=== PATIENT | female | born 1945 | race Caucasian/White ===

== ENCOUNTER 2016-08-18 10:31 | Inpatient (IN) | payer MEDICARE, OTHER ==
[2016-08-18] MEDS ORDERED: SODIUM CHLORIDE 0.9% 1,000 ML IV STA (10:57)
[2016-08-18] MEDS ORDERED: HYDROmorphone 1 MG/ML 1 ML SYRINGE IVP STA ×2 (10:57→13:19)
[2016-08-18 11:27] LABS: Basophils % (A) 0 %; CHCM 34.7; Eosinophils # (A) 0.1 k/uL (0-0.7); Eosinophils % (A) 1 %; HCT 36.2 % (34.0-46.0); HDW 3.07; HGB 12.4 gm/dL (11.4-16.0); Luc # (Auto) 0.08; Luc % (Auto) 2; Lymphocytes # (A) 0.6 k/uL (1.0-4.8); Lymphocytes % (A) 12 %; MCH 31.8 pg (25.0-35.0); MCHC 34.2 g/dL (31.0-37.0); MCV 92.9 fL (80.0-100.0); Mean Platelet Volume 7.4; Monocytes # (A) 0.2 k/uL (0-1.0); Monocytes % (A) 5 %; Neutrophils # (A) 4.2 k/uL (1.3-7.7); Neutrophils % (A) 81 %; RBC 3.89 m/uL (3.80-5.40); RDW 14.9 % (11.5-15.5); WBC 5.2 k/uL (3.8-10.6)
[2016-08-18 11:33] LABS: Partial Thromboplastin Time 26.1 sec (22.0-30.0)
[2016-08-18 11:42] LABS: ALT 22 U/L (9-52); AST 15 U/L (14-36); Alkaline Phosphatase 147 U/L (38-126); Anion Gap 10 mmol/L; Blood Urea Nitrogen 26 mg/dL (7-17); Calcium 9.1 mg/dL (8.4-10.2); Carbon Dioxide 19 mmol/L (22-30); Chloride 116 mmol/L (98-107); Glucose 89 mg/dL (74-99); Magnesium 1.9 mg/dL (1.6-2.3); Non-African American GFR(MDRD) 59 (>60 ml/min/1.73 sqM); Phosphorous 3.7 mg/dL (2.5-4.5); Potassium 4.6 mmol/L (3.5-5.1); Sodium 145 mmol/L (137-145); Total Bilirubin 0.5 mg/dL (0.2-1.3); Total Protein 6.2 g/dL (6.3-8.2)
[2016-08-18 11:47] LABS: Creatine Kinase 71 U/L (30-135)
--- NOTE | 2016-08-18 11:52 | ED ---
General Adult HPI - General Chief complaint: Fall Stated complaint: Fall - RT Hip Pain Time Seen by Provider: 08/18/16 10:32 Source: patient, RN notes reviewed, old records reviewed Mode of arrival: EMS Limitations: physical limitation - History of Present Illness Initial comments: This is a 62-year-old female here status post fall. Patient had a fall all transitioning from inside out side today. And right hip complaining of right hip pain was unable to ambulate after fall. Patient is unsure if she has syncope, unsure if she her head. No nausea vomiting. Manikin putting of right leg pain. Patient's brought in by EMS, no blood thinners - Related Data Home Medications Medication Instructions Recorded Confirmed Furosemide [Lasix] 20 mg PO DAILY 04/11/14 08/18/16 Gemfibrozil [Lopid] 600 mg PO AC-BID 04/11/14 08/18/16 Montelukast [Singulair] 10 mg PO HS 04/11/14 08/18/16 Omeprazole [PriLOSEC] 20 mg PO AC-BID 04/11/14 08/18/16 azaTHIOprine [Imuran] 50 mg PO DAILY 04/11/14 08/18/16 buPROPion HCL [Wellbutrin XL] 150 mg PO DAILY 04/11/14 08/18/16 Potassium Chloride [K-Tab ER] 10 meq PO BID 06/01/14 08/18/16 azaTHIOprine [Imuran] 100 mg PO HS 06/01/14 08/18/16 Calcitriol [Rocaltrol] 0.25 mcg PO MOTH 03/18/15 08/18/16 Ergocalciferol [Vitamin D2 50,000 unit PO SUWE 03/18/15 08/18/16 (DRISDOL)] Folic Acid 1 mg PO DAILY 03/18/15 08/18/16 Diphenox-Atrop 2.5-0.025 mg 1 tab PO QID PRN 01/24/16 08/18/16 [Lomotil] Enalapril [Vasotec] 1.25 mg PO DAILY 01/24/16 08/18/16 Aspirin [Adult Low Dose Aspirin EC] 81 mg PO DAILY 04/03/16 08/18/16 Gabapentin [Neurontin] 300 mg PO QAM 04/03/16 08/18/16 HYDROcodone/APAP 10-325MG [[place] 1 tab PO Q6H PRN 04/27/16 08/18/16 10-325] Cyclobenzaprine [Flexeril] 10 mg PO HS 08/18/16 08/18/16 Gabapentin [Neurontin] 600 mg PO HS 08/18/16 08/18/16 Psyllium Husk (with Sugar) 15 ml PO BID 08/18/16 08/18/16 [Metamucil Powder] Previous Rx's Medication Instructions Recorded Metoprolol Tartrate 25 mg PO BID #60 tablet 04/13/14 Nitroglycerin Sl Tabs [Nitrostat] 0.4 mg SUBLINGUAL Q5M PRN #1 bottle 04/13/14 ALPRAZolam [Xanax] 0.25 mg PO BID #20 tab 04/01/15 Colesevelam [Welchol] 1,250 mg PO BID tab 04/01/15 Allergies Allergy/AdvReac Type Severity Reaction Status Date / Time diazepam [From Valium] Allergy Severe cardiac Verified 08/18/16 12:01 arrest meperidine HCl [From Demerol] Allergy Severe cardiac Verified 08/18/16 12:01 arrest morphine Allergy Severe cardiac Verified 08/18/16 12:01 arrest Sulfa (Sulfonamide Allergy Severe LOW Verified 08/18/16 12:01 Antibiotics) PLATELETS AND VOMITING,HIVES dipyridamole Allergy Rash/Hives Verified 08/18/16 12:01 [From Persantine] Latex, Natural Rubber Allergy Swelling Verified 08/18/16 12:01 NSAIDS (Non-Steroidal AdvReac Severe LOW Verified 08/18/16 12:01 Anti-Inflamma PLATELETS buprenorphine HCl AdvReac Nausea & Verified 08/18/16 12:01 [From Buprenex] Vomiting Review of Systems ROS Statement: Those systems with pertinent positive or pertinent negative responses have been documented in the HPI. ROS Other: All systems not noted in ROS Statement are negative. Past Medical History Past Medical History: Asthma, Chest Pain / Angina, Eye Disorder, GERD/Reflux, Hyperlipidemia, Hypertension, Osteoarthritis (OA), Renal Disease Additional Past Medical History / Comment(s): CROHN'S DISEASE. RENAL INSUFFIENCY, VARICOSE VEINS History of Any Multi-Drug Resistant Organisms: None Reported Past Surgical History: Back Surgery, Bladder Surgery, Cardiac Ablation, Cholecystectomy, Heart Catheterization, Hernia Repair, Hysterectomy, Joint Replacement, Orthopedic Surgery, Tonsillectomy Additional Past Surgical History / Comment(s): LIPOMA REMOVED RT HIP AND BUTTOCK , CATARACTS- LENS IMPLANTS; BILATERAL TOTAL KNEE REPLACEMENT, UMBILICAL HERNIA REPAIR. CYSTOCELE/RECTOCELE REPAIR. RT FOOT, BANDING OF HEMORROIDS, recent colonoscopy, hemmroid removal 04/24/16 Past Anesthesia/Blood Transfusion Reactions: No Reported Reaction Past Psychological History: Anxiety Additional Psychological History / Comment(s): XANAX Smoking Status: Never smoker Past Alcohol Use History: None Reported Past Drug Use History: None Reported - Past Family History Father Family Medical History: Congestive Heart Failure (CHF), Myocardial Infarction ( [place]) Additional Family Medical History / Comment(s): AT AGE 61 [place] Mother Family Medical History: Cancer, Congestive Heart Failure (CHF) Additional Family Medical History / Comment(s): LYMPHOMA AT AGE 91 Brother(s) Family Medical History: Diabetes Mellitus Additional Family Medical History / Comment(s): HEART PROBLEMS Sister(s) Additional Family Medical History / Comment(s): AORTIC ANEURYSM General Exam Limitations: physical limitation General appearance: alert, in no apparent distress Head exam: Present: atraumatic, normocephalic, normal inspection Eye exam: Present: normal appearance, PERRL, EOMI. Absent: scleral icterus, conjunctival injection, periorbital swelling ENT exam: Present: normal exam, mucous membranes moist Neck exam: Present: normal inspection. Absent: tenderness, meningismus, lymphadenopathy Respiratory exam: Present: normal lung sounds bilaterally. Absent: respiratory distress, wheezes, rales, rhonchi, stridor Cardiovascular Exam: Present: regular rate, normal rhythm, normal heart sounds. Absent: systolic murmur, diastolic murmur, rubs, gallop, clicks GI/Abdominal exam: Present: soft, normal bowel sounds. Absent: distended, tenderness, guarding, rebound, rigid Extremities exam: Present: normal inspection, full ROM, normal capillary refill. Absent: tenderness, pedal edema, joint swelling, calf tenderness Back exam: Present: normal inspection Neurological exam: Present: alert, oriented X3, CN II-XII intact Psychiatric exam: Present: normal affect, normal mood Skin exam: Present: warm, dry, intact, normal color. Absent: rash Course Vital Signs 08/18/16 08/18/16 10:32 11:57 Temperature 97 F L Pulse Rate 63 63 Respiratory 18 18 Rate Blood Pressure 151/89 141/78 O2 Sat by Pulse 97 98 Oximetry - Reevaluation(s) Reevaluation #1: 08/18/16 13:32 The patient's pain is currently well controlled EKG Findings - EKG Comments: EKG Findings:: EKG shows normal sinus a rate of 61, [place] 170, QRS 108, QTC 428 Medical Decision Making - Medical Decision Making 18 female the ER for evaluation. Patient presents here for evaluation status post fall. Patient has no other traumatic injury as a from fall except for right hip fracture. Will be admitted for fracture treatment and care - Lab Data Result diagrams: 08/18/16 11:10 08/18/16 11:10 Lab Results 08/18/16 08/18/16 08/18/16 Range/Units 11:10 11:10 11:10 WBC 5.2 (3.8-10.6) k/uL RBC 3.89 (3.80-5.40) m/uL Hgb 12.4 (11.4-16.0) gm/dL Hct 36.2 (34.0-46.0) % MCV 92.9 (80.0-100.0) fL MCH 31.8 (25.0-35.0) pg MCHC 34.2 (31.0-37.0) g/dL RDW 14.9 (11.5-15.5) % Plt Count 226 (150-450) k/uL Neutrophils % 81 % Lymphocytes % 12 % Monocytes % 5 % Eosinophils % 1 % Basophils % 0 % Neutrophils # 4.2 (1.3-7.7) k/uL Lymphocytes # 0.6 L (1.0-4.8) k/uL Monocytes # 0.2 (0-1.0) k/uL Eosinophils # 0.1 (0-0.7) k/uL Basophils # 0.0 (0-0.2) k/uL PT (9.0-12.0) sec INR (<1.1) APTT (22.0-30.0) sec Sodium 145 (137-145) mmol/L Potassium 4.6 (3.5-5.1) mmol/L Chloride 116 H (98-107) mmol/L Carbon Dioxide 19 L (22-30) mmol/L Anion Gap 10 mmol/L BUN 26 H (7-17) mg/dL Creatinine 0.94 (0.52-1.04) mg/dL Est GFR (MDRD) Af Amer >60 (>60 ml/min/1.73 sqM) Est GFR (MDRD) Non-Af 59 (>60 ml/min/1.73 sqM) Glucose 89 (74-99) mg/dL Calcium 9.1 (8.4-10.2) mg/dL Phosphorus 3.7 (2.5-4.5) mg/dL Magnesium 1.9 (1.6-2.3) mg/dL Total Bilirubin 0.5 (0.2-1.3) mg/dL AST 15 (14-36) U/L ALT 22 (9-52) U/L Alkaline Phosphatase 147 H (38-126) U/L Total Creatine Kinase 71 (30-135) U/L CK-MB (CK-2) 1.2 (0.0-2.4) ng/mL CK-MB (CK-2) Rel Index 1.7 Troponin I <0.012 (0.000-0.034) ng/mL Total Protein 6.2 L (6.3-8.2) g/dL Albumin 3.8 (3.5-5.0) g/dL 08/18/ Range/Units 11:10 WBC (3.8-10.6) k/uL RBC (3.80-5.40) m/uL Hgb (11.4-16.0) gm/dL Hct (34.0-46.0) % MCV (80.0-100.0) fL MCH (25.0-35.0) pg MCHC (31.0-37.0) g/dL RDW (11.5-15.5) % Plt Count (150-450) k/uL Neutrophils % % Lymphocytes % % Monocytes % % Eosinophils % % Basophils % % Neutrophils # (1.3-7.7) k/uL Lymphocytes # (1.0-4.8) k/uL Monocytes # (0-1.0) k/uL Eosinophils # (0-0.7) k/uL Basophils # (0-0.2) k/uL PT 10.0 (9.0-12.0) sec INR 1.0 (<1.1) APTT 26.1 (22.0-30.0) sec Sodium (137-145) mmol/L Potassium (3.5-5.1) mmol/L Chloride (98-107) mmol/L Carbon Dioxide (22-30) mmol/L Anion Gap mmol/L BUN (7-17) mg/dL Creatinine (0.52-1.04) mg/dL Est GFR (MDRD) Af Amer (>60 ml/min/1.73 sqM) Est GFR (MDRD) Non-Af (>60 ml/min/1.73 sqM) Glucose (74-99) mg/dL Calcium (8.4-10.2) mg/dL Phosphorus (2.5-4.5) mg/dL Magnesium (1.6-2.3) mg/dL Total Bilirubin (0.2-1.3) mg/dL AST (14-36) U/L ALT (9-52) U/L Alkaline Phosphatase (38-126) U/L Total Creatine Kinase (30-135) U/L CK-MB (CK-2) (0.0-2.4) ng/mL CK-MB (CK-2) Rel Index Troponin I (0.000-0.034) ng/mL Total Protein (6.3-8.2) g/dL Albumin (3.5-5.0) g/dL - Radiology Data Radiology results: report reviewed (CT bases by negative for acute disease, chest x-ray negative x-ray right hip CT right hip shows positive hip fracture), image reviewed Disposition Clinical Impression: Fall, Fracture of right hip Disposition: ADMITTED IP TO THIS [facility] Condition: Good Referrals: Venu Lawton DO [Primary Care Provider] - 1-2 days
[2016-08-18 12:00] LABS: Creatine Kinase MB 1.2 ng/mL (0.0-2.4); Troponin I <0.012 ng/mL (0.000-0.034)
--- NOTE | 2016-08-18 12:13 | CT ---
EXAMINATION TYPE: CT brain bhavin wo con DATE OF EXAM: 08/18/2016 12:03 PM COMPARISON: 07/28/2013 HISTORY: fall CT DLP: [address] of the brain was performed. The ventricles, basal cisterns and sulci overlying the cerebral convexities demonstrate mild enlargem ent. There is no evidence for intracranial hemorrhage or sulcal effacement. There is decreased attenuatio n about the periventricular white matter and deep white matter of both cerebral hemispheres, compatib le with chronic small vessel ischemia. No mass effects are seen. If symptoms persist consider MRI. Osseous calvarium is intact. IMPRESSION: 1. Age related atrophic and chronic small vessel ischemic change without acute intracranial process seen at this time. CT Cervical Spine: Unenhanced CT of the cervical spine was performed with bone and soft tissue window settings submitted . Coronal and sagittal reconstruction is obtained. There is normal alignment and prevertebral soft tissues. No evidence for acute cervical fracture . Scattered degenerative disc disease and spondylosis. Biapical scarring. IMPRESSION: 1. No evidence for acute fracture or subluxation of the cervical spine.
--- NOTE | 2016-08-18 13:08 | XR ---
Right hip HISTORY: Right hip pain Comparison to CT scan abdomen and pelvis 27 April 2016, plain film third of April 2016 2 views of the right hip Questionable lucency present along the femoral neck. No dislocation. Bone mineralization is reduced. Postop changes noted. IMPRESSION: Findings suspicious for fracture, consider CT or MRI for better evaluation.
--- NOTE | 2016-08-18 13:11 | XR ---
EXAMINATION TYPE: XR chest 1V DATE OF EXAM: 08/18/2016 12:37 PM COMPARISON: Prior chest x-ray 27 April 2016 HISTORY: Trauma and pain TECHNIQUE: Single frontal view of the chest is obtained. FINDINGS: There is no focal air space opacity, pleural effusion, or pneumothorax seen. The cardiac silhouette size is enlarged. There are overlying cardiac leads. Patient is rotated. Left shoulder is high riding, consider chronic rotator cuff tear The osseous structures are intact. IMPRESSION: Heart size may be at least in part accentuated by technique.
[2016-08-18] MEDS ORDERED: SODIUM CHLORIDE 0.9% 1,000 ML IV ONE (13:33)
[2016-08-18] MEDS ORDERED: HYDROmorphone 1 MG/ML 1 ML SYRINGE IVP PRN (13:34)
--- NOTE | 2016-08-18 13:56 | CT ---
EXAMINATION TYPE: CT hip RT wo con DATE OF EXAM: 08/18/2016 1:49 PM COMPARISON: NONE HISTORY: Fall-right hip pain CT DLP: 404 mGycm Automated exposure control for dose reduction was used. Unenhanced CT of the right hip was performed with reconstruction in the axial sagittal and coronal pl anes. Bone and soft tissue window settings are submitted. FINDINGS: There is a virtually nondisplaced hairline type fracture involving the femoral neck on the right seen best on the coronal and sagittal images. No additional fractures identified. Small joint effusion is seen. Degenerative narrowing right hip joint space. Mild acetabular spur formation. Spurring greater trochanter. IMPRESSION: NONDISPLACED NONIMPACTED RIGHT FEMORAL NECK FRACTURE.
[2016-08-18 14:35] LABS: Appearance,Urine Cloudy (Clear); Bacteria,Urine Rare /hpf; Bilirubin,Urine Negative (Negative); Glucose,Urine (UA) Negative (Negative); Ketones,Urine Negative (Negative); Leukocyte Esterase,Urine Large (Negative); Mucus,Urine Rare /hpf; Nitrite,Urine Negative (Negative); Particle Count 39143; Protein,Urine Negative (Negative); RBC,Urine 13 /hpf (0-5); Specific Gravity,Urine 1.007 (1.001-1.035); UA Billing (MACRO vs. MICRO) MICRO; Urobilinogen,Urine <2.0 mg/dL (<2.0); WBC,Urine 73 /hpf (0-5)
[2016-08-18] MEDS ORDERED: HYDROmorphone 1 MG/ML 1 ML SYRINGE IM PRN (15:51)
[2016-08-18] MEDS ORDERED: ONDANSETRON 4 MG/2 ML VIAL IVP PRN (15:53)
[2016-08-18 16:10] VITALS: BMI 27.3
[2016-08-18] MEDS ORDERED: NITROGLYCERIN SL TABS 0.4 MG TAB SUBLINGUAL PRN (16:16)
[2016-08-18] MEDS ORDERED: DIPHENOX-ATROP 2.5-0.025 MG 1 EACH TAB PO PRN (16:16)
[2016-08-18] MEDS: LEVOFLOXACIN 500MG-D5W PMX 500 MG in DEXTROSE/WATER 1 100ML.BAG IVPB SCH (17:02)
[2016-08-18] MEDS: GEMFIBROZIL 600 MG TAB PO SCH (17:02)
[2016-08-18] MEDS: COLESEVELAM 625 MG TAB PO SCH (17:02)
[2016-08-18] MEDS: PANTOPRAZOLE 40 MG TABLET PO SCH (17:02)
[2016-08-18] MEDS: SODIUM CHLORIDE 0.9% 1,000 ML IV SCH (17:07)
[2016-08-18] MEDS: HYDROmorphone 1 MG/ML 1 ML SYRINGE IM PRN ×2 (18:44→21:31)
--- NOTE | 2016-08-18 19:15 | P.HPOR ---
History of Present Illness H&P Date: 08/18/16 Chief Complaint: Right hip pain status post fall Patient is seen and examined today at bedside. She is a very pleasant 70-year- old female who is known to our service due to her history of lumbar spine issues and underwent lumbar spine surgery with our service over 2 years ago. She has essentially been doing well until today when she was going out to turn her garage to feed her birds and tripped over one of the feeders and fell to the ground. She denies any chest pain or shortness of breath. She denies any antecedent pain at her hip prior to this. She said she was unable to get up and had severe pain at her right hip. She denies loss of consciousness. She was able to essentially crawl back into the house and her daughter helped her and called ambulance and she presented here to the hospital where she was found to have a right hip femoral neck fracture and was admitted in this regard. She does have significant history of cardiac issues but denies any new cardiac problems currently. Her pain is a most exclusively at her right hip. She denies any numbness tingling in her lower extremities. She denies any neck pain or headaches. She has any comes and upper extremities. She denies any chest pain or shortness of breath. Review of Systems As stated in her HPI. Denies chest pain shortness breath. Denies fevers chills night sweats. Denies any prior pain at her right hip. She has history of lumbar spine issues and had surgery at her lumbar spine possibly 2 years ago. Past Medical History Past Medical History: Asthma, Chest Pain / Angina, Eye Disorder, GERD/Reflux, Hyperlipidemia, Hypertension, Musculoskeletal Disorder (Significant history for cardiac issues and history of lumbar spinal fusion), Osteoarthritis (OA), Renal Disease Additional Past Medical History / Comment(s): CROHN'S DISEASE. RENAL INSUFFIENCY, VARICOSE VEINS History of Any Multi-Drug Resistant Organisms: None Reported Past Surgical History: Back Surgery, Bladder Surgery, Cardiac Ablation, Cholecystectomy, Heart Catheterization, Hernia Repair, Hysterectomy, Joint Replacement, Orthopedic Surgery, Tonsillectomy Additional Past Surgical History / Comment(s): LIPOMA REMOVED RT HIP AND BUTTOCK , CATARACTS- LENS IMPLANTS; BILATERAL TOTAL KNEE REPLACEMENT, UMBILICAL HERNIA REPAIR. CYSTOCELE/RECTOCELE REPAIR. RT FOOT, BANDING OF HEMORROIDS, recent colonoscopy, hemmroid removal 04/24/16 Past Anesthesia/Blood Transfusion Reactions: No Reported Reaction Past Psychological History: Anxiety Additional Psychological History / Comment(s): XANAX Smoking Status: Never smoker Past Alcohol Use History: None Reported Past Drug Use History: None Reported - Past Family History Father Family Medical History: Congestive Heart Failure (CHF), Myocardial Infarction ( [place]) Additional Family Medical History / Comment(s): AT AGE 61 [place] Mother Family Medical History: Cancer, Congestive Heart Failure (CHF) Additional Family Medical History / Comment(s): LYMPHOMA AT AGE 91 Brother(s) Family Medical History: Diabetes Mellitus Additional Family Medical History / Comment(s): HEART PROBLEMS Sister(s) Additional Family Medical History / Comment(s): AORTIC ANEURYSM Medications and Allergies Home Medications Medication Instructions Recorded Confirmed Type Furosemide [Lasix] 20 mg PO DAILY 04/11/14 08/18/16 History Gemfibrozil [Lopid] 600 mg PO AC-BID 04/11/14 08/18/16 History Montelukast [Singulair] 10 mg PO HS 04/11/14 08/18/16 History Omeprazole [PriLOSEC] 20 mg PO AC-BID 04/11/14 08/18/16 History azaTHIOprine [Imuran] 50 mg PO DAILY 04/11/14 08/18/16 History buPROPion HCL [Wellbutrin XL] 150 mg PO DAILY 04/11/14 08/18/16 History Potassium Chloride [K-Tab ER] 10 meq PO BID 06/01/14 08/18/16 History azaTHIOprine [Imuran] 100 mg PO HS 06/01/14 08/18/16 History Calcitriol [Rocaltrol] 0.25 mcg PO MOTH 03/18/15 08/18/16 History Ergocalciferol [Vitamin D2 50,000 unit PO SUWE 03/18/15 08/18/16 History (DRISDOL)] Folic Acid 1 mg PO DAILY 03/18/15 08/18/16 History Diphenox-Atrop 2.5-0.025 mg 1 tab PO QID PRN 01/24/16 08/18/16 History [Lomotil] Enalapril [Vasotec] 1.25 mg PO DAILY 01/24/16 08/18/16 History Aspirin [Adult Low Dose Aspirin EC] 81 mg PO DAILY 04/03/16 08/18/16 History Gabapentin [Neurontin] 300 mg PO QAM 04/03/16 08/18/16 History HYDROcodone/APAP 10-325MG [[place] 1 tab PO Q6H PRN 04/27/16 08/18/16 History 10-325] Cyclobenzaprine [Flexeril] 10 mg PO HS 08/18/16 08/18/16 History Gabapentin [Neurontin] 600 mg PO HS 08/18/16 08/18/16 History Psyllium Husk (with Sugar) 15 ml PO BID 08/18/16 08/18/16 History [Metamucil Powder] Allergies Allergy/AdvReac Type Severity Reaction Status Date / Time diazepam [From Valium] Allergy Severe cardiac Verified 08/18/16 12:01 arrest meperidine HCl [From Demerol] Allergy Severe cardiac Verified 08/18/16 12:01 arrest morphine Allergy Severe cardiac Verified 08/18/16 12:01 arrest Sulfa (Sulfonamide Allergy Severe LOW Verified 08/18/16 12:01 Antibiotics) PLATELETS AND VOMITING,HIVES dipyridamole Allergy Rash/Hives Verified 08/18/16 12:01 [From Persantine] Latex, Natural Rubber Allergy Swelling Verified 08/18/16 12:01 NSAIDS (Non-Steroidal AdvReac Severe LOW Verified 08/18/16 12:01 Anti-Inflamma PLATELETS buprenorphine HCl AdvReac Nausea & Verified 08/18/16 12:01 [From Buprenex] Vomiting Physical Examination Osteopathic Statement: *. No significant issues noted on an osteopathic structural exam other than those noted in the History and Physical/Consult. - Hip right Gait: other (The patient is unable to ambulate. She has severe pain at her right hip with any sort of motion at her right leg. She has sustained dorsal flexion plantar flexion and EHL bilaterally. Her left lower extremity is nontender to palpation and range of motion. Her abdomen soft and nontender. Her chest has good excursion with deep inspection expiration. Her neck is nontender to palpation and range of motion. Her upper extremities have good active and passive range of motion.) Results - Labs Labs: Abnormal Lab Results - Last 24 Hours (Table) 08/18/16 Range/Units 14:20 Urine Appearance Cloudy H (Clear) Urine Blood Small H (Negative) Ur Leukocyte Esterase Large H (Negative) Urine RBC 13 H (0-5) /hpf Urine WBC 73 H (0-5) /hpf Urine WBC Clumps Moderate H (None) /hpf Urine Bacteria Rare H (None) /hpf Urine Mucus Rare H (None) /hpf Result Diagrams: 08/18/16 11:10 08/18/16 11:10 - Diagnostic results Hip x-ray: report reviewed, image reviewed Hip CT: report reviewed, image reviewed (The patient had imaging of her pelvis and hips. At her right hip which shows a femoral neck fracture.) Assessment and Plan Plan: Right femoral neck hip fracture, acute status post fall History of multiple cardiac issues History of lumbar spinal stenosis with history of fusion at her lumbar spine Dionte 2 years ago The patient's acute issues involve her right hip fracture. She is unable to mobilize due to this fracture and her best treatment option would be to pursue surgical intervention for this. We discussed number of treatment options ranging from conservative to surgical intervention. With her femoral neck fracture think the best course of surgery would be to pursue right hip hemiarthroplasty. The risks, occasions of surgery are explained at length. The fact that she has a severe fracture and that it carries risk of significant change of loss of function, loss of independence, loss of change in her mobility status is explained to her. We discussed the risks and, occasions alternatives and benefits of surgery including but not limited to the risk of bleeding risk of infection risk and need for further surgery risk of decreased loss of motion loss of function malunion hardware failure nerve damage dislocation, heart attack and were explained to her in regards to her injury in the apposed treatment options. I answered her questions best my ability healing which she can understand and she is agreeable to pursue surgical intervention for right hip hemiarthroplasty. She'll sign informed consent. We will make her nothing by mouth after midnight and plan for surgical intervention tomorrow if she is cleared with medicine and cardiology.
--- NOTE | 2016-08-18 19:51 | CONS ---
DATE OF CONSULTATION: 08/18/2016 REASON FOR CONSULTATION: Advice regarding hypertension, hyperlipidemia and multiple medical issues requested by Dr. Willis. HISTORY OF PRESENT ILLNESS: This is a 70-year-old woman with a past medical history of asthma, history of gastroesophageal reflux disease, hypertension, hyperlipidemia, history of degenerative joint disease, history of Crohn's disease, history of back surgery, history of cardiac catheterization, history of cholecystectomy being followed by Dr. Venu Linares in the outpatient setting, apparently had a fall yesterday. The patient unable to remember the exact incident. The fall happened while the patient was transitioning from inside to outside. The patient complained of severe right hip pain as well as right hip fracture and was admitted for further evaluation and treatment. There is no history of any fever, rigors. No history of headache, seizures at this time. The hip CT scan was done, which showed nondisplaced non-impacted right femoral neck fracture. Of interest, the patient also had a cardiac ablation a few years ago by Dr. Aguilera. Patient also was noted to have supraventricular arrhythmias previously. There is no history of fever, rigors or chills. PAST MEDICAL HISTORY: History of cardiac ablation, history of asthma, GERD, hypertension, hyperlipidemia, history of Crohn's disease, history of lipoma and anxiety. Medications prior to admission include home medications are: 1. Rocaltrol 0.25 mcg micrograms monthly. 2. Metamucil 15 mL b.i.d. 3. Imuran 100 mg q.h.s. and 50 mg p.o. daily. 4. ( ) BR 10 mg p.o. b.i.d. 5. Prilosec 20 mg b.i.d. 6. Nitrostat 0.4 sublingual p.r.n. 7. Singulair 10 mg q.h.s. 8. Metoprolol 25 mg p.o. b.i.d. 9. [place] 10 mg q.6h. p.r.n. 10. Lopid 600 mg a.c. b.i.d. 11. Neurontin 600 mg q.h.s. and 300 mg in the morning. 12. Lasix 20 mg in the morning. 13. Folic acid 1 mg p.o. daily. 14. Drisdol 50,000 p.o. Wednesday, Wednesday. 15. Vasotec 1.25 mg p.o. daily. 16. Lomotil 1 tablet p.o. q.i.d. p.r.n. 17. Flexeril 10 mg p.o. q.h.s. 18. Wellchol 1250 mg p.o. b.i.d. 19. Wellbutrin XL 150 mg p.o. daily. 20. Aspirin 81 mg p.o. daily. 21. Xanax 0.25 mg p.o. b.i.d. ALLERGIES: VALIUM, DEMEROL MORPHINE, SULFA, DIPYRIDAMOLE, LATEX, NSAIDS AND ( ). FAMILY HISTORY: History of congestive heart failure, myocardial infarction in the family. SOCIAL HISTORY: No history of smoking. No history of alcohol intake. REVIEW OF SYSTEMS: ENT: No diminishing hearing, no diminished vision. CARDIOVASCULAR: As mentioned earlier. RESPIRATORY: No cough. GASTROINTESTINAL: No nausea or vomiting. : No dysuria. Nervous system: Mentioned earlier. ALLERGY/IMMUNOLOGY: As mentioned earlier. HEMATOLOGY/ONCOLOGY: No history of anemia. ENDOCRINE: As mentioned earlier. CONSTITUTIONAL: As mentioned earlier. DERMATOLOGY: Negative. RHEUMATOLOGY: Negative. PSYCHIATRY :As mentioned earlier. PHYSICAL EXAMINATION: The patient is alert and oriented x3. Pulse 69, blood pressure 133/74, respiratory rate 18, temperature 97.3, pulse ox 100% on room air. HEENT: Conjunctivae normal. NECK: No jugular venous distention. CARDIOVASCULAR: S1, S2 muffled. RESPIRATORY: Breath sounds diminished at the bases. No rhonchi, no crackles. ABDOMEN: Soft, nontender. No mass palpable. Legs: Status post right hip fracture. CENTRAL NERVOUS SYSTEM: Higher functions as mentioned earlier. Moves all four limbs. No focal deficits. LYMPHATICS: No lymph nodes palpable in the neck, axillae or groin. SKIN: No ulcer, rash or bleeding. JOINTS: No active deforming arthropathy. Labs are CBC within normal limits. Otherwise, CO2 is 19, BUN is 26, alkaline phosphatase 147, CK is 71, CK-MB is 1.2. Troponins are negative. UA possible urinary tract infection. ASSESSMENT: 1. Status post fall and right hip fracture. 2. Possible syncope present on admission. 3. Urinary tract infection preset on admission. 4. Decreased CO2. 5. Increased chloride. 6. History of asthma. 7. History of cardiac ablation and cardiac catheterization and supraventricular tachycardia . 8. History of gastroesophageal reflux disease. 9. Hypertension. Essential. 10. Hyperlipidemia. 11. History of orthostatic hypotension. 12. History of Crohn's disease. 13. History of renal insufficiency. 14. History of back surgery and degenerative joint disease. 15. History of lipoma. 16. History of anxiety, not otherwise specified. 17. History of hemorrhoids. 18. FULL CODE. RECOMMENDATIONS AND DISCUSSION: This 70-year-old woman who presented after hip fracture and multiple medical issues, but; however, the patient appears to be stable at this time. Cardiology has been consulted. I would recommend remote telemetry. Repeat labs. Otherwise, resume the home medications. DVT prophylaxis. Incentive spirometry. I would also recommend cultures and a course of empiric antibiotics also. Otherwise follow the patient closely. The patient will be cleared for surgery and the patient will be asked to follow up with Dr. Venu Linares closely after discharge. Thank you Dr. Willis for letting us participate in the care of this patient.
[2016-08-18] MEDS: POTASSIUM CHLORIDE ER 10 MEQ TAB.ER.PRT PO SCH (20:36)
[2016-08-18] MEDS: CYCLOBENZAPRINE 5 MG TAB PO SCH (20:36)
[2016-08-18] MEDS: ALPRAZolam 0.25 MG TAB PO SCH (20:36)
[2016-08-18] MEDS: MONTELUKAST 10 MG TAB PO SCH (20:36)
[2016-08-18] MEDS: azaTHIOprine 50 MG TAB PO SCH (20:36)
[2016-08-18] MEDS: METOPROLOL TARTRATE 25 MG TAB PO SCH (20:36)
[2016-08-18] MEDS: GABAPENTIN 300 MG CAP PO SCH (20:36)
[2016-08-19] MEDS: HYDROmorphone 1 MG/ML 1 ML SYRINGE IM PRN ×3 (05:26→11:56)
[2016-08-19] MEDS: ENOXAPARIN 40 MG/0.4 ML SYRINGE SQ SCH (08:10)
[2016-08-19] MEDS: FUROSEMIDE 20 MG TAB PO SCH (08:15)
[2016-08-19] MEDS: PANTOPRAZOLE 40 MG TABLET PO SCH ×2 (08:15→17:43)
[2016-08-19] MEDS: LISINOPRIL 2.5 MG TAB PO SCH (08:15)
[2016-08-19] MEDS: buPROPion XL 150 MG TAB.ER.24H PO SCH (08:15)
[2016-08-19] MEDS: azaTHIOprine 50 MG TAB PO SCH ×2 (08:16→21:23)
[2016-08-19] MEDS: GEMFIBROZIL 600 MG TAB PO SCH ×2 (08:16→17:43)
[2016-08-19] MEDS: COLESEVELAM 625 MG TAB PO SCH ×2 (08:16→17:42)
[2016-08-19] MEDS: GABAPENTIN 300 MG CAP PO SCH ×2 (08:20→21:22)
[2016-08-19] MEDS: METOPROLOL TARTRATE 25 MG TAB PO SCH ×2 (08:20→21:22)
[2016-08-19] MEDS: POTASSIUM CHLORIDE ER 10 MEQ TAB.ER.PRT PO SCH ×2 (08:21→21:23)
[2016-08-19] MEDS: ALPRAZolam 0.25 MG TAB PO SCH ×2 (08:23→21:22)
[2016-08-19 08:31] LABS: Basophils % (A) 0 %; CH 31.3; CHCM 33.4; Eosinophils # (A) 0.1 k/uL (0-0.7); Eosinophils % (A) 1 %; HCT 33.1 % (34.0-46.0); HDW 2.87; HGB 11.2 gm/dL (11.4-16.0); Luc # (Auto) 0.06; Luc % (Auto) 1; Lymphocytes # (A) 0.6 k/uL (1.0-4.8); Lymphocytes % (A) 12 %; MCH 31.9 pg (25.0-35.0); MCHC 33.8 g/dL (31.0-37.0); MCV 94.2 fL (80.0-100.0); Mean Platelet Volume 7.5; Monocytes # (A) 0.2 k/uL (0-1.0); Monocytes % (A) 5 %; Neutrophils % (A) 80 %; RBC 3.51 m/uL (3.80-5.40); WBC (Perox) 5.37
[2016-08-19 08:40] LABS: Anion Gap 9 mmol/L; Blood Urea Nitrogen 19 mg/dL (7-17); Calcium 8.8 mg/dL (8.4-10.2); Carbon Dioxide 18 mmol/L (22-30); Chloride 113 mmol/L (98-107); Glucose 84 mg/dL (74-99); Non-African American GFR(MDRD) >60 (>60 ml/min/1.73 sqM); Potassium 4.6 mmol/L (3.5-5.1); Sodium 140 mmol/L (137-145)
[2016-08-19] MEDS ORDERED: ERGOCALCIFEROL 50,000 UNIT CAP PO SCH (09:00)
[2016-08-19 09:25] LABS: Appearance,Urine Turbid (Clear); Bilirubin,Urine Negative (Negative); Glucose,Urine (UA) Negative (Negative); Ketones,Urine Negative (Negative); Leukocyte Esterase,Urine Large (Negative); Nitrite,Urine Negative (Negative); PH, Urine 5.5 (5.0-8.0); Particle Count 67811; Protein,Urine 2+ (Negative); RBC,Urine 62 /hpf (0-5); UA Billing (MACRO vs. MICRO) MICRO; Urobilinogen,Urine <2.0 mg/dL (<2.0); WBC,Urine >182 /hpf (0-5)
[2016-08-19 09:28] LABS: Specific Gravity,Urine 1.013 (1.001-1.035)
--- NOTE | 2016-08-19 11:16 | CONS ---
DATE OF CONSULTATION: Zahraa Sorensen is a 70-year-old female. The patient admitted to the hospital with right hip fracture following a fall. The patient is known to have hypertension and follows with my associated, Dr. Foss. There is no cardiac issues other than hypertension and patient is a nonsmoker. Patient has other noncardiac problems. History of Crohn disease and varicose veins and history of low back surgery, bladder surgery, history of heart catheterization without any stents, history of hysterectomy, joint replacement, orthopedic surgery. Patient medically denies any chest pain or pressure or orthopnea. Patient's cardiac status is stable. May proceed with surgery as planned, patient carries average risk for this procedure. Patient's medications prior to admission include furosemide 20 mg p.o. daily, Lopid 600 mg p.o. b.i.d., Singulair 10 mg, omeprazole 20 mg, Imuran 50 mg p.o. daily, Wellbutrin XL 150 mg p.o. daily, potassium 10 mEq p.o. b.i.d., Imuran 100 mg p.o. at bedtime, 0.25 mcg monthly, vitamin D 50,000 units weekly, folic acid 1 mg, Lomotil as needed, aspirin 81 mg p.o. daily which needs to be on hold, Vasotec 1.25 mg p.o. daily, [place] as needed for pain, Neurontin 600 mg p.o. at bedtime. Patient's other medications also include metoprolol tartrate 25 mg p.o. b.i.d., will reinstitute that, nitroglycerin sublingually p.r.n. for chest pain, Xanax 0.25 mg, Welchol 1250 mg p.o. b.i.d. Allergic to DIAZEPAM, MEPERIDINE, MORPHINE, SULFA, DIPYRIDAMOLE. The patient is also allergic to LATEX, NONSTEROIDAL ANTI-INFLAMMATORY AGENTS; also allergic to BUPRENORPHINE. Patient has 3 children. Physical examination revealed well-developed, well-nourished 70-year-old female not in any acute distress with a pulse rate of 70 beats per minute and regular, blood pressure 132/74, respirations of 16. HEAD: Normocephalic. HEENT: Unremarkable. NECK: Neck is supple. No thyroid enlargement. No bruit noted. Good carotid upstroke bilaterally. CHEST: Chest is symmetrical. CARDIAC EXAMINATION: Regular rate and rhythm. S1 and S2. Lungs are clinically clear to auscultation and percussion. ABDOMEN: Soft, no organomegaly. Active bowel sounds. EXTREMITIES: Fair peripheral pulses. No pedal edema. TANK COOPER EXAMINATION: Grossly within normal limits. EKG revealed normal sinus rhythm, normal ST-T waves. ASSESSMENT: 1. Right hip fracture. 2. Hypertension. 3. Hyperlipidemia. 4. Crohn disease. 5. History of back problems. 6. Multiple noncardiac problems. 7. Surgeries as mentioned above. RECOMMENDATIONS: May proceed with surgery. Will restart her medications, Lopressor 25 mg p.o. b.i.d. Patient also appears to have ( ) already active 25 mg b.i.d., will continue. Patient also probably have urinary tract infection. Patient is on antibiotics, that should take care of the problem. If you have any questions, please do not hesitate to contact us. Patient is cleared for surgery and perioperative incentive spirometer, perioperative DVT prophylaxis will be recommended. Patient is already on DVT prophylaxis now.
[2016-08-19] MEDS: FOLIC ACID 1 MG TAB PO SCH (12:05)
[2016-08-19] MEDS: LEVOFLOXACIN 500MG-D5W PMX 500 MG in DEXTROSE/WATER 1 100ML.BAG IVPB SCH (12:24)
[2016-08-19 13:56] LABS: Appearance,Urine Clear (Clear); Bilirubin,Urine Negative (Negative); Glucose,Urine (UA) Negative (Negative); Ketones,Urine Negative (Negative); Leukocyte Esterase,Urine Large (Negative); Mucus,Urine Rare /hpf; Nitrite,Urine Negative (Negative); Particle Count 1041; Protein,Urine Negative (Negative); RBC,Urine 7 /hpf (0-5); Specific Gravity,Urine 1.006 (1.001-1.035); UA Billing (MACRO vs. MICRO) MICRO; Urobilinogen,Urine <2.0 mg/dL (<2.0); WBC,Urine 35 /hpf (0-5)
[2016-08-19] MEDS ORDERED: IV FLUID CONTINUATION 1,000 ML IV ONE (14:24)
[2016-08-19] MEDS ORDERED: ONDANSETRON 4 MG/2 ML VIAL IVP ONE ×2 (14:54→17:32)
[2016-08-19] MEDS ORDERED: SUCCINYLCHOLINE CHLORIDE 100 MG/5 ML SYR IV ONE (14:59)
[2016-08-19] MEDS ORDERED: LIDOCAINE 1% INJ 10MG/ML (20 ML MDV) ONE (14:59)
[2016-08-19] MEDS ORDERED: fentaNYL (PF) 50 MCG/ML 2 ML AMP ONE (14:59)
[2016-08-19] MEDS ORDERED: MIDAZOLAM 2 MG/2 ML VIAL ONE (14:59)
[2016-08-19] MEDS ORDERED: ePHEDrine 50 MG/ML 1 ML AMP ONE (14:59)
[2016-08-19] MEDS ORDERED: HYDROmorphone (PF) 1 MG/ML ONE (14:59)
[2016-08-19] MEDS ORDERED: PROPOFOL 10 MG/ML 20 ML VIAL IV ONE (14:59)
[2016-08-19] MEDS ORDERED: SODIUM CHLORIDE 0.9% 100 ML with ceFAZolin 2,000 MG IV ONE ×2 (15:32)
[2016-08-19] MEDS ORDERED: LACTATED RINGERS 1,000 ML IV ONE ×3 (15:43→16:48)
[2016-08-19] MEDS ORDERED: HYDROcodone/APAP 10-325MG 1 EACH TAB PO PRN (16:53)
--- NOTE | 2016-08-19 16:53 | P.OP ---
Date of Procedure: 08/19/16 Preoperative Diagnosis: Right hip femoral neck fracture, acute status post fall Postoperative Diagnosis: Same Anesthesia: GETA Pathology: other (Femoral head to pathology and subcutaneous mass right hip measuring approximately 5 x 4 x 2.5 cm apparently lipoma sent to pathology) Condition: stable Disposition: PACU Description of Procedure: Preoperative diagnosis: Femoral neck fracture, right acute status post fall Postoperative diagnosis: Same plus right hip subcutaneous mass, apparent lipoma Procedure: Hip hemiarthroplasty Excision of subcutaneous mass right hip, apparent lipoma Surgeon: Dr. Lazaro Jose.: Andreas Russell who is present that the entire the case persistence during positioning dissection exposure placement of hardware and closure Anesthesia: Gen. Estimated blood loss: Approximately 150 mL Components implanted: [employer] press-fit collarless unipolar fracture stem and unipolar head measuring 50 mm with a size 7 stem Disposition: To recovery room in good stable condition Operative indications The patient sustained a injury and suffered a femoral neck fracture which was mildly displaced and angulated. She had sustained a fall from a standing height while at home going to her garage to feed her birds. We were involved in the case in regard to his hip fracture. She did not have any other injury that she was aware of. She is normally a community ambulate or without any assistance. After evaluation it was determined that they would be a candidate for hip hemiarthroplasty via surgical intervention. This would give them the best chance of mobilization and ambulation. We discussed the range of treatment options from conservative to surgical. They elected proceed with surgical intervention. We discussed the risk of occasions alternatives and benefits of surgery including but not limited to the risk of bleeding risk of infection risk of need for further surgery risk of decreased or loss of motion hardware failure dislocation loss of function loss of ambulation loss of ambulatory status risk of heart attack and was all explained to her. We answered their questions to the best of our ability healing which they can understand. They signed an informed consent. Operative summary After obtaining informed consent evaluation by anesthesia, preoperative evaluation and clearance for medical service, the patient was identified and prepped Fernandez area and the surgical site was marked. There brought to the operating room where the given appropriate anesthesia by the anesthesia department in standard fashion without any complications. Once the anesthesia was established we were able to position the patient. There placed in a lateral decubitus position with the operative side up being careful to pad any bony prominences and pressure points and place a excellent roll appropriately. The airway and C-spine was monitored continuously. Once patient was well positioned lower extremity was prepped and draped in normal standard sterile fashion. An appropriate keystone protocol and timeout was completed and were able to proceed with surgery. A curvilinear incision was established over the greater trochanter. The patient had a right hip mass apparent lipoma at her lateral thigh over her greater trochanter. I was able to dissect over this and decided to remove this and mass. It measured approximately 5 x 4 x 2.5 cm and was apparent lipoma. It was removed and sent to pathology. Dissection was taken down to the tensor fascia renard which was split in line with its fibers and extended proximally into the gluteal fibers. A Charnley retractor was established. The trochanteric bursa was inflamed and removed. I was able to then dissect down off the posterior aspect of the greater trochanter taking the piriformis tendon and the posterior capsule in one full- thickness flap and tacking it with suture. This expose the fracture at the femoral neck which was easily identified. A guide was used to establish the appropriate femoral neck cut and a bone- cutting saw was used to establish the femoral neck cut and good alignment and good position. All the bony fragments were removed. I was then able to use a corkscrew device to remove the femoral head from the acetabulum. Then the head and neck were somewhat large that was measuring approximately 50 mm Any loose fragments in the acetabulum were removed. The femoral head was measured for the appropriate size implant and then passed off for pathology. Appropriate retractors were placed and I established a lateral box cut chisel. I then used a starting reamer to establish the femoral canal area I then sequentially reamed with sequential broaches until we had good bony fill distally. There is no evidence any fracture in the possible femur. With the appropriate size broach well seated and stable I placed the trial neck and head. A gentle reduction was performed to get good reduction. The hip was taken through a good range of motion and found to be stable in the position of sleep and through a range of motion. It had a good shuck test. We were able to then dislocate the trial prosthesis. The broach was found to remain stable. It was then removed. The wound was copiously irrigated and suctioned dry with pulsatile lavage. The appropriate size femoral stem of a size 7 was chosen and positioned and placed in good alignment and good position with excellent fit and fill seated appropriately over the calcar. It was checked and found to be stable. The trunnion was cleaned and dried the femoral head was then positioned over the femoral neck malleted in position checked and found to be stable. The hip prosthesis was then gently reduced back into the acetabulum and found to have excellent position and excellent stability and excellent range of motion with stability. There is no evidence of dislocation or fracture. The wound was copiously irrigated and suctioned dry. We are able to proceed with closure. The piriformis and posterior capsule were reapproximated to the posterior aspect of the greater trochanter with transosseous stitches. The wound was irrigated and suctioned dry. The fascia was closed with #2 Quill for watertight closure. Subcutaneous tissue was irrigated and suctioned dry. Subcu tissues closed with 2-0 Vicryl subcuticular tissue was closed with 30 Quill. Wound is clean and dried and dressed with Dermabond Adaptic 4 x 4's ABDs and tape. Drapes were broken down, the hip was held in stable position, and an abduction pillow was placed. The patient was then transferred back to their hospital bed being careful to maintain the hip and C-spine alignment and airway. Once stable to patient was transferred back to the postanesthesia care unit to be readmitted for pain control and DVT prophylaxis medical management and monitoring and mobilization we will continue follow patient closely throughout their postoperative course.
[2016-08-19] MEDS ORDERED: MAGNESIUM HYDROXIDE 2,400 MG/10 ML CUP PO PRN (16:54)
[2016-08-19] MEDS ORDERED: NALOXONE 0.4 MG/ML 1 ML VIAL IV PRN (16:54)
[2016-08-19] MEDS ORDERED: HYDROcodone/APAP 5-325MG 1 EACH TAB PO PRN (16:54)
[2016-08-19] MEDS ORDERED: HYDROmorphone 1 MG/ML 1 ML SYRINGE IVP PRN (16:54)
[2016-08-19] MEDS ORDERED: BENZOCAINE/MENTHOL LOZENG 1 EACH LOZENGE MUCOUS MEM PRN (16:54)
[2016-08-19] MEDS ORDERED: DIAZEPAM 5 MG TAB PO PRN (16:54)
[2016-08-19] MEDS: HYDROmorphone 1 MG/ML 1 ML SYRINGE IVP ONE ×2 (17:36→17:44)
[2016-08-19] MEDS: SODIUM CHLORIDE 0.9% 1,000 ML IV SCH ×2 (17:42)
--- NOTE | 2016-08-19 18:35 | XR ---
EXAMINATION TYPE: XR Hip Limited RT DATE OF EXAM: 08/19/2016 6:27 PM COMPARISON: Yesterday HISTORY: Surgery TECHNIQUE: Single view FINDINGS: There is a new right hip prosthesis. Components appear in anatomic position. IMPRESSION: Right hip prosthesis without sign of a complicating process.
[2016-08-19] MEDS: HYDROmorphone 1 MG/ML 1 ML SYRINGE IVP PRN (19:14)
[2016-08-19 19:32] LABS: Basophils % (A) 0 %; CH 31.2; CHCM 33.3; Eosinophils # (A) 0.1 k/uL (0-0.7); Eosinophils % (A) 1 %; HCT 34.4 % (34.0-46.0); HDW 2.84; HGB 11.2 gm/dL (11.4-16.0); Luc # (Auto) 0.08; Luc % (Auto) 1; Lymphocytes # (A) 0.5 k/uL (1.0-4.8); Lymphocytes % (A) 5 %; MCH 30.6 pg (25.0-35.0); MCHC 32.4 g/dL (31.0-37.0); MCV 94.4 fL (80.0-100.0); Mean Platelet Volume 7.3; Monocytes # (A) 0.3 k/uL (0-1.0); Monocytes % (A) 4 %; Neutrophils % (A) 89 %; RBC 3.65 m/uL (3.80-5.40); WBC 8.9 k/uL (3.8-10.6); WBC (Perox) 8.83
[2016-08-19] MEDS: CYCLOBENZAPRINE 5 MG TAB PO SCH (21:22)
[2016-08-19] MEDS: MONTELUKAST 10 MG TAB PO SCH (21:23)
[2016-08-19] MEDS: SENNOSIDES-DOCUSATE SODIUM 1 EACH TAB PO SCH (21:25)
[2016-08-19] MEDS ORDERED: SODIUM CHLORIDE 0.9% 500 ML IV ONE (21:26)
--- NOTE | 2016-08-19 22:49 | PN ---
DATE OF SERVICE: 08/19/2016 This 70 -year-old woman who was admitted after fall and right hip fracture also had syncope. The patient is being closely monitored at this time. The patient slated to have surgery today. No chest pain. No palpitations. No fever. On exam, alert and oriented times three. Pulse 80, blood pressure 125/70, temperature 98.8, pulse ox 95% on 8 liters. HEENT: Conjunctivae normal. NECK: No jugular venous distention. CARDIOVASCULAR: S1 and S2 muffled. RESPIRATORY: Breath sounds diminished at the bases. No rhonchi. No crackles. ABDOMEN: Soft. LEGS: Status post fracture. CENTRAL NERVOUS SYSTEM: No focal deficits. LABS: WBC 7.2, CO2 is 18. UA noted. ASSESSMENT: 1. Status post fall and right hip fracture. 2. Possible syncope, present on admission. 3. Urinary tract infection, present on admission. 4. Decreased CO2. 5. Increased chloride. 6. History of asthma. 7. History of cardiac ablation, cardiac catheterization, supraventricular tachycardia. 8. History of gastroesophageal reflux disease. 9. Hypertension, essential. 10. Hyperlipidemia. 11. History of orthostatic hypotension. 12. History of Crohn's disease. 13. History of renal insufficiency. 14. History of back surgery, degenerative joint disease . 15. History of lipomas. 16. History of anxiety, not otherwise specified. 17. History of hemorrhoids. 18. FULL CODE. RECOMMENDATIONS AND DISCUSSION: Recommend to continue current medications, continue symptomatic treatment. DVT prophylaxis. Repeat labs. Continue with antibiotics. Closely follow with orthopedic surgery. Further recommendations to follow.
[2016-08-20] MEDS ORDERED: ACETAMINOPHEN IV (For NPO) 1,000 MG in EMPTY BAG 1 BAG IVPB PRN (04:13)
[2016-08-20] MEDS: HYDROcodone/APAP 5-325MG 1 EACH TAB PO PRN ×2 (06:08→12:34)
[2016-08-20] MEDS ORDERED: CALCITRIOL 0.25 MCG CAP PO SCH (09:00)
[2016-08-20] MEDS: SODIUM CHLORIDE 0.9% 1,000 ML IV SCH ×3 (09:24→16:34)
[2016-08-20] MEDS: ceFAZolin 2 GM in SODIUM CHLORIDE 0.9% 100 ML IVPB SCH ×3 (09:48)
[2016-08-20] MEDS: GABAPENTIN 300 MG CAP PO SCH ×2 (09:49→20:37)
[2016-08-20] MEDS: LISINOPRIL 2.5 MG TAB PO SCH (09:50)
[2016-08-20] MEDS: COLESEVELAM 625 MG TAB PO SCH ×2 (09:50→16:42)
[2016-08-20] MEDS: GEMFIBROZIL 600 MG TAB PO SCH ×2 (09:53→16:42)
[2016-08-20] MEDS: PANTOPRAZOLE 40 MG TABLET PO SCH ×2 (09:53→16:42)
[2016-08-20] MEDS: ENOXAPARIN 40 MG/0.4 ML SYRINGE SQ SCH (09:54)
[2016-08-20] MEDS: ASPIRIN 81 MG CHEW PO SCH (09:54)
[2016-08-20] MEDS: ALPRAZolam 0.25 MG TAB PO SCH ×2 (09:54→21:21)
[2016-08-20] MEDS: azaTHIOprine 50 MG TAB PO SCH ×2 (09:55→20:36)
[2016-08-20] MEDS: POTASSIUM CHLORIDE ER 10 MEQ TAB.ER.PRT PO SCH ×2 (09:55→20:37)
[2016-08-20] MEDS: buPROPion XL 150 MG TAB.ER.24H PO SCH (09:56)
[2016-08-20] MEDS: METOPROLOL TARTRATE 25 MG TAB PO SCH ×2 (09:56→22:20)
[2016-08-20] MEDS: FOLIC ACID 1 MG TAB PO SCH (09:57)
[2016-08-20] MEDS: FUROSEMIDE 20 MG TAB PO SCH (09:57)
[2016-08-20] MEDS ORDERED: SODIUM CHLORIDE 0.9% 500 ML IV ONE (11:16)
--- NOTE | 2016-08-20 12:20 | P.PN ---
Progress Note - Text Postoperative day #1 Patient is seen and examined today at bedside. The patient has some pain around the surgical site as expected. Pain is being controlled with medication. She has been able get out of bed and feels her hip is significantly different. She has had some lower blood pressures to the upper 80s systolic. She is getting some fluids and wear monitoring closely. She denies shortness of breath or chest pain. Physical Exam Afebrile with stable vital signs Abdomen is soft nontender. Chest has good excursion deep and space expiration The incision site is clean dry and intact. No erythema there is no purulence. Her right lower extremity has sustained dorsal flexion plantar flexion and EHL Extremities have not had neurologic change from prior to surgery. Calves and thighs were soft nontender without evidence of DVT. Assessment/Plan Postoperative day #1 status post right hip hemiarthroplasty for her right femoral neck hip fracture Patient is progressing as expected from the surgery. She had some decreased blood pressure and will be monitored closely. Medicine is following her closely as well. We will continue to increase the patient's mobilization with therapy. She has been able to get up to a chair today she may weight-bear as tolerated and can increase her mobilization as she tolerates. She still has her Fernandez intact and it will be discontinued as soon as she is able to be mobile. We will continue pain control with oral or IV medications. We'll continue to follow patient closely.
--- NOTE | 2016-08-20 12:31 | P.PN ---
Progress Note - Text Postoperative day #1 Patient is seen and examined today at bedside. The patient has some pain around the surgical site as expected. Pain is being controlled with medication. She has been able get up and walk into the hallway today. She says her legs are doing well and they're not painful or tingling. Physical Exam Afebrile with stable vital signs Abdomen is soft nontender. Chest has good excursion deep and space expiration The incision site at her back is clean dry and intact. No erythema there is no purulence. There was some early drainage but it appears to be dry at this point. Extremities have not had neurologic change from prior to surgery. She has good sustained dorsal flexion plantar flexion and extensor hallucis longus Calves and thighs were soft nontender without evidence of DVT. Assessment/Plan Postoperative day #1 status post minimally invasive decompression and fusion L4 5 for her spinal stenosis and spondylolisthesis Patient is progressing as expected from the surgery. She has been able to mobilize quite nicely thus far with good pain control We will continue to increase the patient's mobilization with therapy. We will continue pain control with oral or IV medications. We'll continue to follow patient closely. She feels she may be able to go home tomorrow which would be appropriate as long as she continues to make good progress
[2016-08-20] MEDS: LEVOFLOXACIN 500MG-D5W PMX 500 MG in DEXTROSE/WATER 1 100ML.BAG IVPB SCH (16:36)
[2016-08-20] MEDS: HYDROmorphone 1 MG/ML 1 ML SYRINGE IVP PRN (19:25)
[2016-08-20] MEDS: MONTELUKAST 10 MG TAB PO SCH (20:37)
[2016-08-20] MEDS: CYCLOBENZAPRINE 5 MG TAB PO SCH (20:37)
[2016-08-20] MEDS: SENNOSIDES-DOCUSATE SODIUM 1 EACH TAB PO SCH (21:21)
--- NOTE | 2016-08-20 22:50 | PN ---
DATE OF SERVICE: 08/20/2016 This 70-year-old woman was admitted after a fall and right hip fracture, is being monitored closely. No chest pain or palpitations. No fever. Patient is sitting at the bedside. On exam, alert and oriented x3. Pulse 87, blood pressure 107/51, respirations 18, temperature 98.8, pulse ox 94% on room air. HEENT: Conjunctivae normal. NECK: No jugular venous distension. CARDIOVASCULAR: S1 and S2 muffled. RESPIRATORY: Breath sounds diminished in the bases. No rhonchi. No crackles. ABDOMEN: Soft. LEGS: Status post surgery. NERVOUS SYSTEM: No focal deficits. LABS: WBC 8.9, hemoglobin is 11.2. Urine culture is gram-negative bacilli still. ASSESSMENT: 1. Status post fall and right hip fracture. 2. Possible syncope, present on admission. 3. Urinary tract infection with gram-negative bacilli, present on admission. 4. Decreased CO2. 5. Increased chloride. 6. History of asthma. 7. History of cardiac ablation, cardiac catheterization, supraventricular tachycardia. 8. History of gastroesophageal reflux disease. 9. Hypertension, essential. 10. Hyperlipidemia. 11. Orthostatic hypotension. 12. History of Crohn disease. 13. History of renal insufficiency. 14. History of back surgery, degenerative joint disease. 15. History of lymphoma. 16. Anxiety, not otherwise specified. 17. History of hemorrhoids. 18. FULL CODE. RECOMMENDATIONS AND DISCUSSION: In this 70-year-old woman who presented with multiple complex medical issues, we will monitor the patient closely. Continue the current medications, continue symptomatic treatment. Otherwise, incentive spirometry. Await final ID of the culture. Continue the antibiotics for now at this time. Further recommendations to follow.
[2016-08-21] MEDS: HYDROcodone/APAP 5-325MG 1 EACH TAB PO PRN ×2 (07:32→13:28)
[2016-08-21] MEDS: COLESEVELAM 625 MG TAB PO SCH (08:17)
[2016-08-21] MEDS: METOPROLOL TARTRATE 25 MG TAB PO SCH (08:17)
[2016-08-21] MEDS: GEMFIBROZIL 600 MG TAB PO SCH (08:18)
[2016-08-21] MEDS: ALPRAZolam 0.25 MG TAB PO SCH (08:18)
[2016-08-21] MEDS: LISINOPRIL 2.5 MG TAB PO SCH (08:18)
[2016-08-21] MEDS: PANTOPRAZOLE 40 MG TABLET PO SCH (08:18)
[2016-08-21] MEDS: azaTHIOprine 50 MG TAB PO SCH (08:19)
[2016-08-21] MEDS: ASPIRIN 81 MG CHEW PO SCH (08:19)
[2016-08-21] MEDS: buPROPion XL 150 MG TAB.ER.24H PO SCH (08:19)
[2016-08-21] MEDS: POTASSIUM CHLORIDE ER 10 MEQ TAB.ER.PRT PO SCH (08:19)
[2016-08-21] MEDS: ENOXAPARIN 40 MG/0.4 ML SYRINGE SQ SCH (08:20)
[2016-08-21] MEDS: GABAPENTIN 300 MG CAP PO SCH (08:20)
[2016-08-21] MEDS: FUROSEMIDE 20 MG TAB PO SCH (08:21)
[2016-08-21 08:33] VITALS: BP 99/57; PULSE 91; RESP 16; TEMP 97.9
[2016-08-21 08:59] LABS: Basophils % (A) 0 %; CHCM 33.6; Eosinophils # (A) 0.1 k/uL (0-0.7); Eosinophils % (A) 1 %; HCT 27.9 % (34.0-46.0); HDW 2.86; Luc # (Auto) 0.08; Luc % (Auto) 1; Lymphocytes # (A) 0.4 k/uL (1.0-4.8); Lymphocytes % (A) 6 %; MCH 30.8 pg (25.0-35.0); MCHC 33.1 g/dL (31.0-37.0); MCV 93.1 fL (80.0-100.0); Mean Platelet Volume 8.2; Monocytes # (A) 0.2 k/uL (0-1.0); Monocytes % (A) 4 %; Neutrophils # (A) 5.8 k/uL (1.3-7.7); Neutrophils % (A) 88 %; RDW 14.8 % (11.5-15.5); WBC 6.6 k/uL (3.8-10.6); WBC (Perox) 6.91
[2016-08-21 09:02] LABS: HGB 9.2 gm/dL (11.4-16.0)
--- NOTE | 2016-08-21 13:03 | P.DS ---
Providers Date of admission: 08/18/16 13:33 Expected date of discharge: 08/21/16 Attending physician: Julieth Willis Consults: 08/18/16 14:17 Consult Physician Urgent Consulting Provider: Baldemar Robertson Consult Reason/Comments: cp Do you want consulting provider notified?: Yes 08/18/16 14:23 Consult Physician Urgent Consulting Provider: Dorene Vasquez Consult Reason/Comments: cardiac clearance for surgery Do you want consulting provider notified?: Yes Primary care physician: Venu Lawton - Discharge Diagnosis(es) (1) Closed displaced fracture of right femoral neck Current Visit: Yes Status: Acute (2) Urinary tract infection Current Visit: Yes Status: Acute (3) Fall Current Visit: Yes Status: Acute Hospital Course: This is a pleasant 70-year-old female who is well known to our service who presented with a right hip femoral neck fracture status post fall. She was admitted and underwent a right hip hemiarthroplasty along with excision of subcutaneous right hip mass, apparent lipoma. The patient tolerated the procedure well and did well postoperatively. She is not complaining of significant pain at the right hip. Her pain has been well-controlled. She continues to use her abductor pillow while lying in bed. She has had some skin irritation with some blistering from the Medipore tape over the right hip. This dressing has been removed and changed with nonstick Telfa and Tegaderm. She also has an abrasion above the right buttock that is healing. The dressing will be placed prior to discharge. She states she is ready for discharge to [facility]. Her has recently been discharged to the same facility and case management has already been working on her discharge. She'll be discharged to [facility] and she will share the same room with her . She has been able to transfer to bedside chair. She has not ambulated the halls yet postsurgically. She plans work with physical therapy today. She feels she is ready for discharge. She'll be discharged to [facility] rehabilitation facility. Condition on day of discharge stable. Patient was cleared preoperatively for surgery by Dr. Robertson in medicine and cardiology. Postsurgically she has been on telemetry without difficulty. She has remained in regular sinus rhythm, the past 2 days. She was experiencing some hypotension but her blood pressures have been improving. Most recent blood pressure was 99/57. Patient currently denies any nausea, vomiting, fever, or chills. Patient is eating and voiding freely without difficulty. Patient may shower Tegaderm dressings intact. Patient may remove Tegaderm dressing over the incision site in 3 days and shower without a dressing at that time. Patient should continue to use the abductor pillow while lying in bed. She'll be given prescriptions for Enoxaparin 40 mg subcu daily for 4 weeks, dispense # 28 (Twenty-Eight) and Elkins 10 mg/325 mg 1 tablet every 6 hours as needed for pain, dispensed #90 (ninety). Prescription will be written for Flexeril 10 mg at nighttime, dispense #30 (Thirty). She should also continue with dressing changes as needed over the areas of skin irritation and blistering following use of Medipore tape. She also had significant urinary tract infection at the time of admittance that has been improving and has been on Levaquin 500 mg. She 'll be given a prescription for Levaquin 500 mg daily for 7 days, dispense #7 ( Seven). Medicine will plan to complete the medical record for [facility]. We'll plan to discontinue her Fernandez catheter in the morning after transfer to [facility]. Physical Exam Hip Hemiarthroplasty: Status post surgical day number 2 Patient is examined sitting bedside upright in a chair Patient is awake, alert, and oriented 3 Vital signs stable Good chest excursion with deep inspiration and expiration Abdomen soft nontender No signs or symptoms of DVT; no calf pain Lower extremity cuffs not currently intact bilaterally Dressing of the hip is clean, dry, and intact; no erythema, purulence, or signs of infection Dressings over the skin irritation and blistering around the surgical site are clean, dry, and intact Small abrasion above the right buttock appears to be healing and is dry with no active drainage Full range of motion of ankles bilaterally Dorsiflexion, plantarflexion, and extensor hallucis longus positive sustained bilaterally Neurovascularly intact bilateral lower extremities Capillary refill less than 2 seconds bilateral lower extremities Fernandez catheter intact Procedures: Right hip hemiarthroplasty along with excision of subcutaneous right hip mass, apparent lipoma. Patient Condition at Discharge: Stable Plan - Discharge Summary New Discharge Prescriptions: Cyclobenzaprine [Flexeril] 10 mg PO HS PRN #30 PRN Reason: Muscle Spasm Enoxaparin [Lovenox] 40 mg SQ DAILY #28 syringe HYDROcodone/APAP 10-325MG [Elkins 10] 1 each PO Q6H PRN #90 tab PRN Reason: Pain Levofloxacin [Levaquin] 500 mg PO DAILY #7 tab Discharge Medication List Furosemide [Lasix] 20 mg PO DAILY 04/11/14 [History] Gemfibrozil [Lopid] 600 mg PO AC-BID 04/11/14 [History] Montelukast [Singulair] 10 mg PO HS 04/11/14 [History] Omeprazole [PriLOSEC] 20 mg PO AC-BID 04/11/14 [History] azaTHIOprine [Imuran] 50 mg PO DAILY 04/11/14 [History] buPROPion HCL [Wellbutrin XL] 150 mg PO DAILY 04/11/14 [History] Metoprolol Tartrate 25 mg PO BID #60 tablet 04/13/14 [Rx] Nitroglycerin Sl Tabs [Nitrostat] 0.4 mg SUBLINGUAL Q5M PRN #1 bottle 04/13/14 [ Rx] Potassium Chloride [K-Tab ER] 10 meq PO BID 06/01/14 [History] azaTHIOprine [Imuran] 100 mg PO HS 06/01/14 [History] Calcitriol [Rocaltrol] 0.25 mcg PO MOTH 03/18/15 [History] Ergocalciferol [Vitamin D2 (DRISDOL)] 50,000 unit PO SUWE 03/18/15 [History] Folic Acid 1 mg PO DAILY 03/18/15 [History] ALPRAZolam [Xanax] 0.25 mg PO BID #20 tab 04/01/15 [Rx] Colesevelam [Welchol] 1,250 mg PO BID tab 04/01/15 [Rx] Diphenox-Atrop 2.5-0.025 mg [Lomotil] 1 tab PO QID PRN 01/24/16 [History] Enalapril [Vasotec] 1.25 mg PO DAILY 01/24/16 [History] Aspirin [Adult Low Dose Aspirin EC] 81 mg PO DAILY 04/03/16 [History] Gabapentin [Neurontin] 300 mg PO QAM 04/03/16 [History] HYDROcodone/APAP 10-325MG [Elkins 10-325] 1 tab PO Q6H PRN 04/27/16 [History] Cyclobenzaprine [Flexeril] 10 mg PO HS 08/18/16 [History] Gabapentin [Neurontin] 600 mg PO HS 08/18/16 [History] Psyllium Husk (with Sugar) [Metamucil Powder] 15 ml PO BID 08/18/16 [History] Cyclobenzaprine [Flexeril] 10 mg PO HS PRN #30 08/21/16 [Rx] Enoxaparin [Lovenox] 40 mg SQ DAILY #28 syringe 08/21/16 [Rx] HYDROcodone/APAP 10-325MG [Elkins 10] 1 each PO Q6H PRN #90 tab 08/21/16 [Rx] Levofloxacin [Levaquin] 500 mg PO DAILY #7 tab 08/21/16 [Rx] Follow up Appointment(s)/Referral(s): Venu Lawton DO [Primary Care Provider] - 1-2 days Andreas Guillermo PAC [PHYSICIAN ORTHOPEDICALLY IMPAIRED TEACHER] - 1 Week (Patient may follow-up with Andreas Guillermo PA-C or Dr. Ji Willis at [facility] in 2 weeks following discharge. ) Activity/Diet/Wound Care/Special Instructions: 1. Patient may continue to weight-bear as tolerated on the lower extremity; patient may work with physical therapy to increase mobility and ambulation 2. Abductor pillow to remain in place at all times except while working with therapy 3. Keep incision clean, dry, and intact; Tegaderm dressing may be removed from the incision site in 3 days and patient may shower without a dressing at that time 4. Patient may currently shower with Tegaderm dressings intact 5. Continue with daily dressing changes as needed over the irritated skin and blisters over the area of the right hip where previous Medipore tape was placed and over the area of the upper right buttock 6. Do not soak in tub 7. Continue to take medications as prescribed 8. We'll plan to discontinue her Fernandez catheter in the morning after transfer to [facility]. Discharge Disposition: TRANSFER TO SNF/ECF
[2016-08-21] MEDS: SODIUM CHLORIDE 0.9% 1,000 ML IV SCH (13:20)
[2016-08-21] MEDS: FOLIC ACID 1 MG TAB PO SCH (13:50)
== END 2016-08-21 13:55 | DRG 464 ==
LOC: EC 10:31 → 5MS5E 13:33
PROVIDERS: ADMIT Orthopaedic Surgery Orthopaedic Surgery of the Spine; ATTEND Orthopaedic Surgery Orthopaedic Surgery of the Spine
PROC: 0JBL0ZZ Excision of Right Upper Leg Subcutaneous Tissue and Fascia, Open Approach (ICD-10-PCS; 2016-08-19)
PROC: 0SRR0JA Replacement of Right Hip Joint, Femoral Surface with Synthetic Substitute, Uncemented, Open Approach (ICD-10-PCS; principal; 2016-08-19 08:30)
DX: S72.001A Fracture of unspecified part of neck of right femur, initial encounter for closed fracture (principal); K50.90 Crohn's disease, unspecified, without complications; N39.0 Urinary tract infection, site not specified; E87.8 Other disorders of electrolyte and fluid balance, not elsewhere classified; I10 Essential (primary) hypertension; D17.23 Benign lipomatous neoplasm of skin and subcutaneous tissue of right leg; E78.5 Hyperlipidemia, unspecified; F41.9 Anxiety disorder, unspecified; J45.909 Unspecified asthma, uncomplicated; K21.9 Gastro-esophageal reflux disease without esophagitis; I83.90 Asymptomatic varicose veins of unspecified lower extremity; K64.9 Unspecified hemorrhoids; M19.90 Unspecified osteoarthritis, unspecified site; R55 Syncope and collapse; Z79.82 Long term (current) use of aspirin; Z79.899 Other long term (current) drug therapy; Z88.2 Allergy status to sulfonamides; Z91.040 Latex allergy status; Z98.1 Arthrodesis status; Z88.5 Allergy status to narcotic agent; Z88.8 Allergy status to other drugs, medicaments and biological substances; Z96.653 Presence of artificial knee joint, bilateral; Z85.72 Personal history of non-Hodgkin lymphomas; Z82.49 Family history of ischemic heart disease and other diseases of the circulatory system; W01.0XXA Fall on same level from slipping, tripping and stumbling without subsequent striking against object, initial encounter; Y92.009 Unspecified place in unspecified non-institutional (private) residence as the place of occurrence of the external cause
CPT/HCPCS: 36415; 70450; 71010; 72125; 73501; 73502; 80048; 80053; 81001; 82550; 82553; 83735; 84100; 84484; 85025; 85610; 85730; 86850; 86900; 86901; 87077; 87086; 87186; 88304; 88305; 88311; 93005

== ENCOUNTER → 2016-11-05 | Outpatient (CLI) | payer MEDICARE, OTHER ==
[2016-11-05 14:11] LABS: Anisocytosis Slight; Basophils % (A) 0 %; CH 30.6; CHCM 33.5; Eosinophils # (A) 0.1 k/uL (0-0.7); Eosinophils % (A) 3 %; HCT 38.6 % (34.0-46.0); HDW 2.98; HGB 12.7 gm/dL (11.4-16.0); Luc # (Auto) 0.08; Luc % (Auto) 2; Lymphocytes % (A) 21 %; MCH 30.3 pg (25.0-35.0); MCV 91.9 fL (80.0-100.0); Mean Platelet Volume 7.9; Monocytes # (A) 0.2 k/uL (0-1.0); Monocytes % (A) 5 %; Neutrophils # (A) 3.2 k/uL (1.3-7.7); Neutrophils % (A) 69 %; RDW 16.3 % (11.5-15.5); WBC 4.6 k/uL (3.8-10.6); WBC (Perox) 4.47
[2016-11-05 14:27] LABS: Appearance,Urine Clear (Clear); Bilirubin,Urine Negative (Negative); Glucose,Urine (UA) Negative (Negative); Ketones,Urine Negative (Negative); Leukocyte Esterase,Urine Trace (Negative); Nitrite,Urine Negative (Negative); Particle Count 907; Protein,Urine Negative (Negative); RBC,Urine <1 /hpf (0-5); Specific Gravity,Urine 1.007 (1.001-1.035); Squamous Epithelial Cell,Urine 1 /hpf (0-4); UA Billing (MACRO vs. MICRO) MICRO; Urobilinogen,Urine <2.0 mg/dL (<2.0); WBC,Urine 1 /hpf (0-5)
[2016-11-05 15:37] LABS: Magnesium 1.8 mg/dL (1.6-2.3); Phosphorous 4.4 mg/dL (2.5-4.5); Uric Acid 7.4 mg/dL (3.7-7.4)
== END | disposition home or self-care (01) ==
LOC: LABWHC1 13:31
PROVIDERS: ATTEND Nurse Practitioner Family
DX: D50.9 Iron deficiency anemia, unspecified (principal); E55.9 Vitamin D deficiency, unspecified; N18.3 Chronic kidney disease, stage 3 (moderate); N25.81 Secondary hyperparathyroidism of renal origin; N39.0 Urinary tract infection, site not specified; M10.9 Gout, unspecified
CPT/HCPCS: 36415; 81001; 82306; 82728; 83540; 83550; 83735; 83970; 84100; 84550; 85025

== ENCOUNTER 2016-12-02 14:45 | Emergency (ER) | payer MEDICARE, OTHER ==
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
[2016-12-02 16:39] VITALS: BP 120/76; PULSE 78; RESP 18; TEMP 97.2
== END 2016-12-02 16:40 | disposition home or self-care (01) ==
LOC: EC 14:45
DX: M54.5 Low back pain (principal); G89.29 Other chronic pain; R51 Headache; M54.2 Cervicalgia; K21.9 Gastro-esophageal reflux disease without esophagitis; M19.90 Unspecified osteoarthritis, unspecified site; E78.5 Hyperlipidemia, unspecified; I10 Essential (primary) hypertension; K50.90 Crohn's disease, unspecified, without complications; Z96.653 Presence of artificial knee joint, bilateral; Z98.890 Other specified postprocedural states; Z79.82 Long term (current) use of aspirin; Z79.899 Other long term (current) drug therapy; Z88.2 Allergy status to sulfonamides; Z88.5 Allergy status to narcotic agent; Z88.6 Allergy status to analgesic agent; Z88.8 Allergy status to other drugs, medicaments and biological substances; Z91.040 Latex allergy status; V43.62XA Car passenger injured in collision with other type car in traffic accident, initial encounter
CPT/HCPCS: 70450; 71020; 72100; 72125; 99284

== ENCOUNTER 2017-10-13 08:09 | Day surgery (SDC) | payer MEDICARE, OTHER ==
[2017-10-08 15:45] VITALS: BMI 28.2
[~2017-10-13 08:09] MED LIST: LACTATED RINGERS 1,000 ML IV SCH; LIDOCAINE 1% 20 ML VIAL (10MG/ML) FOR IV START INTRADERMA PRN; MIDAZOLAM 2 MG/2 ML VIAL IV PRN
[2017-10-13 09:14] VITALS: TEMP 97.8
[2017-10-13] MEDS ORDERED: LIDOCAINE 1% INJ 10MG/ML (20 ML MDV) ONE (09:44)
[2017-10-13] MEDS ORDERED: PROPOFOL 10 MG/ML 20 ML VIAL IV ONE (09:44)
--- NOTE | 2017-10-13 10:10 | P.PCN ---
Date of Procedure: 10/13/17 Procedure(s) Performed: BRIEF HISTORY: Patient is a 71-year-old pleasant white female, scheduled for an elective colonoscopy as a part of surveillance of long-standing history of Crohn 's ileitis diagnosed in 2010. Lately she has been having right diarrhea. She is maintained on Imuran 150 mg daily. She is scheduled for an elective colonoscopy to evaluate further. PROCEDURE PERFORMED: Colonoscopy with biopsy and snare polypectomy. PREOPERATIVE DIAGNOSIS:. Diarrhea history of Crohn's ileitis diagnosed in 2010. IV sedation per Anesthesia. PROCEDURE: After informed consent was obtained, the patient, was brought into the endoscopy unit. IV sedation was administered by Anesthesia under continuous monitoring. Digital rectal examination was normal. Initially the Olympus CF- 160 flexible video colonoscope was then inserted in the rectum, gradually advanced into the cecum with moderate to severe difficulty. Careful examination was performed as the scope was gradually being withdrawn. Ileocecal valve and the appendiceal orifice were visualized and appeared normal. Prep was excellent. In the base of the cecum there was a 7-8 mm sessile polyp that was removed by snare polypectomy. The mucosa of the cecum, ascending colon, transverse colon, descending colon, sigmoid colon, and rectum appeared normal. Random biopsies were done from the ascending and descending colon to rule out microscopic/collagenous colitis. Retroflexion was performed in the rectum and no lesions were seen. The patient tolerated the procedure well. IMPRESSION: Normal-appearing colon from rectum to cecum with no evidence of colitis. 7-8 mm cecal polyp status post snare polypectomy RECOMMENDATIONS: Findings of this examination were discussed with the patient well as her family. She was advised to follow with the biopsy results. In the mean time she will continue with Imuran 150 mg daily and Lomotil as needed for the chronic diarrhea. She will be seen in the office in 3 weeks.
[2017-10-13 10:14] VITALS: PULSE 65; RESP 18
[2017-10-13 10:44] VITALS: BP 124/68
== END 2017-10-13 11:09 | disposition home or self-care (01) ==
LOC: ORWHC2ENDO 08:09
PROVIDERS: ATTEND Internal Medicine Gastroenterology
DX: K63.5 Polyp of colon (principal); D17.79 Benign lipomatous neoplasm of other sites; K50.00 Crohn's disease of small intestine without complications; E78.5 Hyperlipidemia, unspecified; J45.909 Unspecified asthma, uncomplicated; I12.9 Hypertensive chronic kidney disease with stage 1 through stage 4 chronic kidney disease, or unspecified chronic kidney disease; N18.9 Chronic kidney disease, unspecified; K21.9 Gastro-esophageal reflux disease without esophagitis; Z79.82 Long term (current) use of aspirin; Z79.891 Long term (current) use of opiate analgesic; Z79.899 Other long term (current) drug therapy; Z88.5 Allergy status to narcotic agent; Z88.2 Allergy status to sulfonamides; Z88.8 Allergy status to other drugs, medicaments and biological substances; Z88.6 Allergy status to analgesic agent; Z91.040 Latex allergy status
CPT/HCPCS: 88305; 45380; 45385; J2001; J2704

== ENCOUNTER → 2018-01-17 | Outpatient (CLI) | payer MEDICARE, OTHER ==
--- NOTE | 2018-01-17 11:23 | US ---
EXAMINATION TYPE: US kidneys/renal and bladder DATE OF EXAM: 01/17/2018 COMPARISON: CT 04/27/2016, US 12/24/2014 CLINICAL HISTORY: N18.3 Chronic kidney disease stage 3. EXAM MEASUREMENTS: Right Kidney: 9.5 x 4.8 x 4.4 cm Left Kidney: 9.4 x 4.8 x 3.9 cm Post Void Residual Volume: mL Right Kidney: No hydronephrosis. No cystic or solid mass visualized Left Kidney: No hydronephrosis. Cystic area visualized lower pole measuring 2.5 x 2.8 x 2.3 cm Bladder: wnl Bilateral Jets seen: Yes There is no evidence for hydronephrosis at this point in time. No nephrolithiasis is seen. The urin nuria bladder is anechoic. Bilateral ureteral jets are seen. IMPRESSION: 1. Simple appearing cyst lower pole left kidney.
== END | disposition home or self-care (01) ==
LOC: RADUSWWP 09:08
PROVIDERS: ATTEND Family Medicine
DX: N28.1 Cyst of kidney, acquired (principal); N18.3 Chronic kidney disease, stage 3 (moderate)
CPT/HCPCS: 76770

== ENCOUNTER → 2018-06-09 | Outpatient (CLI) | payer MEDICARE, OTHER ==
[2018-06-09 16:42] LABS: Anisocytosis Slight; Basophils % (A) 0 %; Eosinophils # (A) 0.1 k/uL (0-0.7); Eosinophils % (A) 1 %; HCT 45.3 % (34.0-46.0); Hypochromasia Slight; Lymphocytes # (A) 0.8 k/uL (1.0-4.8); Lymphocytes % (A) 12 %; MCH 29.5 pg (25.0-35.0); MCV 95.2 fL (80.0-100.0); Mean Platelet Volume 7.6; Monocytes # (A) 0.3 k/uL (0-1.0); Monocytes % (A) 5 %; Neutrophils # (A) 5.7 k/uL (1.3-7.7); Neutrophils % (A) 81 %; Platelet Count 241 k/uL (150-450); RBC 4.76 m/uL (3.80-5.40)
[2018-06-09 16:51] LABS: Appearance,Urine Cloudy (Clear); Bacteria,Urine Moderate /hpf; Bilirubin,Urine Negative (Negative); Blood,Urine Small (Negative); Color,Urine Yellow; Glucose,Urine (UA) Negative (Negative); Hyaline Casts,Urine 3 /lpf (0-2); Ketones,Urine Negative (Negative); Leukocyte Esterase,Urine Large (Negative); Mucus,Urine Rare /hpf; Nitrite,Urine Positive (Negative); PH, Urine 5.5 (5.0-8.0); Protein,Urine Negative (Negative); Specific Gravity,Urine 1.011 (1.001-1.035); Urobilinogen,Urine <2.0 mg/dL (<2.0); WBC,Urine >182 /hpf (0-5)
[2018-06-10 01:22] LABS: Anion Gap 13.3 mmol/L (4.00-12.00); Calcium 8.9 mg/dL (8.7-10.3); Carbon Dioxide 21.7 mmol/L (21.6-31.8); Magnesium 2.2 mg/dL (1.5-2.4); Phosphorus 4.8 mg/dL (2.4-5.1); Potassium 4.8 mmol/L (3.5-5.5); Uric Acid 7.2 mg/dL (2.9-7.7)
[2018-06-10 01:24] LABS: Iron Saturation 28.48 (12.00-45.00)
[2018-06-10 01:31] LABS: Parathyroid Hormone Intact 260.5 pg/mL (14.0-72.0)
[2018-06-10 01:32] LABS: Vitamin D 25 Hydroxy 34.2 ng/mL (30.0-100.0)
== END | disposition home or self-care (01) ==
LOC: LABWHC1 15:24
PROVIDERS: ATTEND Nurse Practitioner Family
DX: N18.3 Chronic kidney disease, stage 3 (moderate) (principal); N25.81 Secondary hyperparathyroidism of renal origin; N39.0 Urinary tract infection, site not specified; E55.9 Vitamin D deficiency, unspecified; E21.3 Hyperparathyroidism, unspecified; D63.1 Anemia in chronic kidney disease
CPT/HCPCS: 36415; 80048; 81001; 82306; 82728; 83540; 83550; 83735; 83970; 84100; 84550; 85025; 87086

== ENCOUNTER → 2018-11-30 | Outpatient (CLI) | payer MEDICARE, OTHER ==
[2018-11-30 16:35] LABS: Chol/HDL Ratio 4.31
== END | disposition home or self-care (01) ==
LOC: LABWHC1 10:14
PROVIDERS: ATTEND Internal Medicine Cardiovascular Disease
DX: E78.2 Mixed hyperlipidemia (principal)
CPT/HCPCS: 36415; 80061; 84450; 84460

== ENCOUNTER → 2018-12-19 | Outpatient (CLI) | payer MEDICARE, OTHER ==
--- NOTE | 2018-12-19 10:43 | CT ---
EXAMINATION TYPE: CT abdomen pelvis w con DATE OF EXAM: 12/19/2018 COMPARISON: 08/18/2016 INDICATION: Incisional hernia DLP: 1283.2 mGycm, Automated exposure control for dose reduction was used. CONTRAST: 100 mL of Isovue 300. Study performed with Oral Contrast TECHNIQUE: Axial images were obtained from above the diaphragm to the pubic rami in the axial plane a t 5 mm thick sections. Reconstructed images are reviewed on the computer in the coronal plane. FINDINGS: Limited CT sections are obtained the lung bases. The lung bases are clear. CT ABDOMEN: Liver: Normal Spleen: Normal Pancreas: Normal Adrenal glands: The adrenal glands are normal. Gallbladder: Absent Kidneys: No masses are evident. No hydronephrosis is present. Left-sided renal cysts are present. T he largest at the mid to inferior left kidney measures 2.3 cm. Delayed images were obtained through the kidneys, which remain unremarkable. Aorta: Vascular calcification is within the aorta. Inferior vena cava: Normal. CT PELVIS: Beam hardening artifact from pedicle screws and fixation rods are within the lumbar spine. Large fecal bolus is present within the rectum with fecal retention through the sigmoid colon. Loops of bowel within the abdomen and pelvis are normal. Appendix: Normal as visualized. Urinary bladder: Normal. Genitourinary structures: Uterus is not identified. Adnexal regions appear clear. Osseous structures: No suspicious lytic or sclerotic lesions. Gliosis is present. Fixation pedicle sc rews and rods are present within the lower lumbar spine. IMPRESSIONS: 1. No suspicious changes to suggest incisional hernia.
== END | disposition home or self-care (01) ==
LOC: RADCTMAIN 06:42
PROVIDERS: ATTEND Surgery
DX: K43.2 Incisional hernia without obstruction or gangrene (principal)
CPT/HCPCS: 82565; 84520; 74177; 36415; Q9967 ×2

== ENCOUNTER 2019-05-07 12:17 | Emergency (ER) | payer MEDICARE, OTHER ==
--- NOTE | 2019-05-07 13:00 | ED ---
Fall HPI - General Chief Complaint: Fall Stated Complaint: Fall Time Seen by Provider: 05/07/19 12:30 Source: patient Mode of arrival: wheelchair - History of Present Illness Initial Comments: Patient is 73-year-old female presenting to emergency Department with a chief complaint of fall. Patient states that incident occurred about one hour prior to ED arrival. Patient states she will was walking inside her house when she tripped over one-step at the doorway and fell forward almost on the left side. Patient reports possible loss of consciousness but is not completely sure. Daughter states the patient was "out of it" for a few seconds before being verbally responsive again. Patient is complaining of some right-sided cervical tenderness that is exacerbated with left rotation. Patient is also complaining of left shoulder pain that is exacerbated with abduction above 90. Patient also reports pain in the left hip that is exacerbated with any movement. Patient did have a left hip fracture 3 years ago. Patient denies taking medication to alleviate the symptoms. Patient denies any vision or chest pain or shortness of breath, headache, nausea, vomiting, dizziness or lightheadedness. - Related Data Home Medications Medication Instructions Recorded Confirmed Furosemide [Lasix] 20 mg PO QAM 04/11/14 10/08/17 Gemfibrozil [Lopid] 600 mg PO BID 04/11/14 10/08/17 Montelukast [Singulair] 10 mg PO HS 04/11/14 10/08/17 Omeprazole [PriLOSEC] 20 mg PO BID 04/11/14 10/08/17 azaTHIOprine [Imuran] 50 mg PO QAM 04/11/14 10/08/17 buPROPion HCL [Wellbutrin XL] 150 mg PO QAM 04/11/14 10/08/17 Potassium Chloride [K-Tab ER] 10 meq PO BID 06/01/14 10/08/17 azaTHIOprine [Imuran] 100 mg PO HS 06/01/14 10/08/17 Calcitriol [Rocaltrol] 0.25 mcg PO MOWEFR 03/18/15 10/08/17 Ergocalciferol [Vitamin D2 50,000 unit PO MOWEFR 03/18/15 10/08/17 (DRISDOL)] Folic Acid 1 mg PO HS 03/18/15 10/08/17 Aspirin [Adult Low Dose Aspirin EC] 81 mg PO QAM 04/03/16 10/08/17 Gabapentin [Neurontin] 300 mg PO QAM 04/03/16 10/08/17 Gabapentin [Neurontin] 600 mg PO HS 08/18/16 10/08/17 Cyclobenzaprine [Flexeril] 10 mg PO HS 12/02/16 10/08/17 Diphenox-Atrop 2.5-0.025 mg 1 tab PO QID PRN 12/02/16 10/13/17 [Lomotil] HYDROcodone/APAP 7.5-325MG [[place] 1 tab PO BID PRN 12/02/16 10/08/17 7.5-325] Magnesium Gluconate [Magonate] 500 mg PO DAILY 10/08/17 10/08/17 Previous Rx's Medication Instructions Recorded Metoprolol Tartrate 25 mg PO BID #60 tablet 04/13/14 Nitroglycerin Sl Tabs [Nitrostat] 0.4 mg SUBLINGUAL Q5M PRN #1 bottle 04/13/14 Colesevelam [Welchol] 1,250 mg PO BID tab 04/01/15 ALPRAZolam [Xanax] 0.25 mg PO BID #20 tab 08/21/16 Allergies Allergy/AdvReac Type Severity Reaction Status Date / Time diazepam [From Valium] Allergy Severe cardiac Verified 05/07/19 12:23 arrest meperidine HCl [From Demerol] Allergy Severe cardiac Verified 05/07/19 12:23 arrest morphine Allergy Severe cardiac Verified 05/07/19 12:23 arrest Sulfa (Sulfonamide Allergy Severe LOW Verified 05/07/19 12:23 Antibiotics) PLATELETS AND VOMITING,HIVES dipyridamole Allergy Rash/Hives Verified 05/07/19 12:23 [From Persantine] Latex, Natural Rubber Allergy Swelling Verified 05/07/19 12:23 NSAIDS (Non-Steroidal AdvReac Severe LOW Verified 05/07/19 12:23 Anti-Inflamma PLATELETS buprenorphine HCl AdvReac Nausea & Verified 05/07/19 12:23 [From Buprenex] Vomiting Review of Systems ROS Statement: Those systems with pertinent positive or pertinent negative responses have been documented in the HPI. ROS Other: All systems not noted in ROS Statement are negative. Past Medical History Past Medical History: Asthma, Chest Pain / Angina, Eye Disorder, GERD/Reflux, Hyperlipidemia, Hypertension, Musculoskeletal Disorder, Osteoarthritis (OA), Renal Disease Additional Past Medical History / Comment(s): CROHN'S DISEASE. RENAL INSUFFIENCY, VARICOSE VEINS History of Any Multi-Drug Resistant Organisms: None Reported Past Surgical History: Back Surgery, Bladder Surgery, Cardiac Ablation, Cholecystectomy, Heart Catheterization, Hernia Repair, Hysterectomy, Joint Replacement, Orthopedic Surgery, Tonsillectomy Additional Past Surgical History / Comment(s): LIPOMA REMOVED RT HIP AND BUTTOCK, CATARACTS- LENS IMPLANTS; BILATERAL TOTAL KNEE REPLACEMENT, UMBILICAL HERNIA REPAIR. CYSTOCELE/RECTOCELE REPAIR. RT FOOT, BANDING OF HEMORROIDS, right hip hemiarthroplasty 2016 Past Anesthesia/Blood Transfusion Reactions: No Reported Reaction Past Psychological History: Anxiety Smoking Status: Never smoker Past Alcohol Use History: Occasional Past Drug Use History: None Reported - Past Family History Father Family Medical History: Congestive Heart Failure (CHF), Myocardial Infarction ([place]) Additional Family Medical History / Comment(s): AT AGE 61 [place] Mother Family Medical History: Cancer, Congestive Heart Failure (CHF) Additional Family Medical History / Comment(s): LYMPHOMA AT AGE 91 Brother(s) Family Medical History: Diabetes Mellitus Additional Family Medical History / Comment(s): HEART PROBLEMS Sister(s) Additional Family Medical History / Comment(s): AORTIC ANEURYSM General Exam Limitations: physical limitation General appearance: alert, in no apparent distress Head exam: Present: atraumatic, normocephalic, normal inspection. Absent: other (Negative hemotympanum, negative Morales sign, negative periorbital ecchymosis.) Eye exam: Present: normal appearance, PERRL, EOMI. Absent: nystagmus Pupils: Present: normal accommodation ENT exam: Present: normal exam, normal oropharynx, mucous membranes moist, TM's normal bilaterally, normal external ear exam Neck exam: Present: normal inspection, tenderness (Right paraspinal tenderness exacerbated with left rotation), full ROM Respiratory exam: Present: normal lung sounds bilaterally. Absent: respiratory distress, wheezes, rales Cardiovascular Exam: Present: regular rate, normal rhythm, normal heart sounds GI/Abdominal exam: Present: soft. Absent: distended, tenderness, guarding, basil ound Extremities exam: Present: normal inspection (Minor abrasion on the right heel), tenderness (Tenderness at the right hip. No tenderness on the left shoulder.), normal capillary refill, other. Absent: full ROM (Limited range of motion with abduction above 90 on the left shoulder. Unable to flex or extend the left hip.), pedal edema, joint swelling, calf tenderness Back exam: Present: normal inspection, full ROM Neurological exam: Present: alert, oriented X3, CN II-XII intact Psychiatric exam: Present: normal affect, normal mood Skin exam: Present: warm, dry, intact, normal color Course Vital Signs 05/07/19 12:20 Temperature 97.7 F Pulse Rate 79 Respiratory 18 Rate Blood Pressure 142/87 O2 Sat by Pulse 92 L Oximetry Medical Decision Making - Medical Decision Making Patient is 73-year-old female presenting to the emergency department with a chief complaint of fall. Physical examination no acute signs of trauma to the head. Patient does have limited range of motion of the left shoulder but 90 with abduction. Limited range of motion with left hip flexion and extension. Patient neurovascularly intact in bilateral upper and lower extremities. X-rays of the left hip and pelvis showed diffuse osteopenia. No signs of acute fracture or dislocations. I asked arthritic changes noted although there appeared to be chronic. Brain and C-spine CT with no contrast shows no signs of acute intracranial hemorrhage, fractures, dislocations oroccupy lesions. X-ray of the left shoulder shows no signs of acute fracture or dislocation but does indicate narrowing of the subacromial space suggesting possible rotator cuff injury. On exam patient had a positive up to can test. Patient was to follow- up with orthopedics. Patient given analgesia in ED. Strict return parameters were thoroughly discussed with patient who understanding and agreeable. Case discussed with physician. Disposition Clinical Impression: Fall (on) (from) other stairs and steps, initial encounter, Injury of left rotator cuff Disposition: HOME SELF-CARE Condition: Stable Instructions (If sedation given, give patient instructions): Fall Prevention (ED), Rotator Cuff Injury (ED) Additional Instructions: Please follow with an technical services specialist. Alternate between Tylenol and ibuprofen for pain control. Please return to emergency department if symptoms worsen. Is patient prescribed a controlled substance at d/c from ED?: No Referrals: Venu Lawton DO [Primary Care Provider] - 1-2 days Jon Snell MD [STAFF PHYSICIAN] - 1-2 days Time of Disposition: 14:32
--- NOTE | 2019-05-07 14:06 | CT ---
EXAMINATION TYPE: CT brain daphneine wo con DATE OF EXAM: 05/07/2019 COMPARISON: 12/02/2016 HISTORY: 73-year-old female pain after trauma, Fall CT DLP: 1310.2 mGycm Automated exposure control for dose reduction was used. Technique: Examination of the head was done in axial plane without intravenous contrast. Coronal and sagittal reconstructions performed. CT of the cervical spine was obtained in axial plane without intravenous injection of contrast mater ial. Coronal and sagittal reformatted images were obtained from the axial views for evaluation of f ractures, spinal alignment and canal. FINDINGS: Head: There is no evidence of acute intracranial hemorrhage, acute ischemic changes, mass, mass-effect, or extra-axial fluid collection. There is no effacement of cerebral sulci or basal subarachnoid cister ns. There is no hydrocephalus. There is no midline shift. Brooks-white matter distinction is preserv ed. Chronic appearing punctate density, probable calcification, anterior right frontal cortex, axial imag e 21 and sagittal image 23 and 06/22/2016 exam sagittal image 53. Some scattered mild to moderate patchy subcortical white matter hypodensities are unchanged. Paranasal sinuses and mastoid air cells are well pneumatized. Orbits and globes are intact. Cervical spine: No previous cervical junction abnormality, predental space widening, or prevertebral soft tissue swel ling. Degenerative changes of the C1 dens articulation. Moderate degenerative disc disease C6-C7 and C7-T1. Disc osteophyte complex complexes mildly narrow t he spinal canal. Trace grade 1 retrolisthesis at C4-C5. Remaining alignment is maintained. No acute fracture of the cervical spine. Variable mild neural foraminal narrowing mid and lower cervical spine. Sagittal and coronal reformatted images confirm above findings. COMBINED IMPRESSION: 1. No acute intracranial abnormality seen. Stable punctate density, probable cortical calcification a nterior right frontal lobe back to 2017. 2. No acute fracture of the cervical spine. Degenerative grade 1 retrolisthesis of C4-C5. Mild to mod erate spondylotic change.
[2019-05-07] MEDS ORDERED: HYDROcodone/APAP 7.5-325MG 1 EACH TAB PO ONE (14:07)
--- NOTE | 2019-05-07 14:07 | XR ---
EXAMINATION TYPE: XR shoulder complete LT DATE OF EXAM: 05/07/2019 COMPARISON: NONE HISTORY: 73-year-old female fall, pain, trauma TECHNIQUE: 3 views FINDINGS: Moderate degenerative change of the AC joint. There is loss of the subacromial space on the AP commercial intern al rotation view. Some degenerative spurring of the glenohumeral joint. No acute fracture, subluxatio n, or dislocation. IMPRESSION: 1. No acute osseous abnormality seen. 2. Narrowing of the subacromial space on the AP internal rotation view may be projectional. Correlate for the possibility of underlying rotator cuff tear. 3. Moderate AC joint OA and mild glenohumeral joint OA.
--- NOTE | 2019-05-07 14:11 | XR ---
EXAMINATION TYPE: XR pelvis AP view, XR femur 2 views LT DATE OF EXAM: 05/07/2019 COMPARISON: NONE HISTORY: 73-year-old female fall, pain, trauma FINDINGS: Pelvis: Partially visualized lower lumbar fusion hardware. Diffuse osteopenia limiting overall evaluation. Mild degenerative change at the left hip. Partially visualized right hip hemiarthroplasty. There seems to be some axial narrowing of the [place] acetabular articular cartilage. Left femur: Left total knee arthroplasty. There may be underlying small knee joint effusion, nonspecific. No acut e femoral fracture identified. Osteopenia. IMPRESSION: Pelvis and left femur: Generalized osteopenia. No displaced fracture seen.
[2019-05-07 14:41] VITALS: BP 154/74; PULSE 87; RESP 16; TEMP 98.1
== END 2019-05-07 14:40 | disposition home or self-care (01) ==
LOC: EC 12:17
DX: S46.002A Unspecified injury of muscle(s) and tendon(s) of the rotator cuff of left shoulder, initial encounter (principal); M85.88 Other specified disorders of bone density and structure, other site; S90.811A Abrasion, right foot, initial encounter; K21.9 Gastro-esophageal reflux disease without esophagitis; I10 Essential (primary) hypertension; F41.9 Anxiety disorder, unspecified; M19.012 Primary osteoarthritis, left shoulder; Z79.82 Long term (current) use of aspirin; Z79.899 Other long term (current) drug therapy; Z88.5 Allergy status to narcotic agent; Z88.8 Allergy status to other drugs, medicaments and biological substances; Z88.2 Allergy status to sulfonamides; Z91.040 Latex allergy status; Z91.048 Other nonmedicinal substance allergy status; Z88.6 Allergy status to analgesic agent; Z96.653 Presence of artificial knee joint, bilateral; W01.0XXA Fall on same level from slipping, tripping and stumbling without subsequent striking against object, initial encounter; Y93.01 Activity, walking, marching and hiking; Y92.009 Unspecified place in unspecified non-institutional (private) residence as the place of occurrence of the external cause
CPT/HCPCS: 70450; 72125; 72170; 99284

== ENCOUNTER → 2019-06-02 | Outpatient (CLI) | payer MEDICARE, OTHER ==
[2019-06-02 11:11] LABS: HCT 40.5 % (34.0-46.0); HGB 12.7 gm/dL (11.4-16.0); MCH 29.7 pg (25.0-35.0); MCHC 31.3 g/dL (31.0-37.0); MCV 94.9 fL (80.0-100.0); Mean Platelet Volume 8.6; Platelet Count 214 k/uL (150-450); RBC 4.27 m/uL (3.80-5.40); RDW 15.9 % (11.5-15.5); WBC 4.4 k/uL (3.8-10.6)
[2019-06-02 16:53] LABS: African American GFR (CKD) 74.6 (60.0-200.0); Anion Gap 10.8 mmol/L (4.00-12.00); Carbon Dioxide 19.2 mmol/L (21.6-31.8); Chol/HDL Ratio 4.09; Non-African American GFR(CKD) 64.3 (60.0-200.0); Potassium 4.7 mmol/L (3.5-5.5)
== END | disposition home or self-care (01) ==
LOC: LABWHC1 09:26
PROVIDERS: ATTEND Internal Medicine Cardiovascular Disease
DX: E78.2 Mixed hyperlipidemia (principal); R55 Syncope and collapse
CPT/HCPCS: 36415; 80051; 80061; 82565; 84450; 84460; 84520; 85027

== ENCOUNTER → 2020-01-10 | Outpatient (CLI) | payer MEDICARE, OTHER ==
[2020-01-10 14:47] LABS: Basophils % (A) 1 %; Eosinophils # (A) 0.2 k/uL (0-0.7); Eosinophils % (A) 2 %; HCT 43.4 % (34.0-46.0); HGB 13.5 gm/dL (11.4-16.0); Lymphocytes # (A) 0.7 k/uL (1.0-4.8); Lymphocytes % (A) 11 %; MCH 28.7 pg (25.0-35.0); MCHC 31.1 g/dL (31.0-37.0); MCV 92.3 fL (80.0-100.0); Mean Platelet Volume 7.2; Monocytes # (A) 0.4 k/uL (0-1.0); Monocytes % (A) 5 %; Neutrophils # (A) 5.4 k/uL (1.3-7.7); Neutrophils % (A) 78 %; Platelet Count 239 k/uL (150-450); RDW 14.9 % (11.5-15.5); WBC 6.9 k/uL (3.8-10.6)
[2020-01-10 19:35] LABS: African American GFR (CKD) 65.2 (60.0-200.0); Albumin 4.4 g/dL (3.80-4.90); Albumin/Globulin Ratio 2.32 (1.60-3.17); Anion Gap 8.5 mmol/L (4.00-12.00); Calcium 9.2 mg/dL (8.7-10.3); Carbon Dioxide 22.5 mmol/L (21.6-31.8); Globulin 1.9 g/dL (1.6-3.3); Non-African American GFR(CKD) 56.2 (60.0-200.0); Potassium 4.8 mmol/L (3.5-5.5); Total Bilirubin 0.5 mg/dL (0.3-1.2); Total Protein 6.3 g/dL (6.2-8.2)
== END | disposition home or self-care (01) ==
LOC: LABWHC1 13:58
PROVIDERS: ATTEND Internal Medicine Gastroenterology
DX: K59.09 Other constipation (principal)
CPT/HCPCS: 36415; 80053; 85025

== ENCOUNTER → 2020-01-17 | Outpatient (CLI) | payer MEDICARE, OTHER ==
[2020-01-17 15:05] LABS: Basophils % (A) 0 %; Eosinophils # (A) 0.2 k/uL (0-0.7); Eosinophils % (A) 2 %; HCT 40.7 % (34.0-46.0); Lymphocytes # (A) 0.8 k/uL (1.0-4.8); Lymphocytes % (A) 11 %; MCH 29.2 pg (25.0-35.0); MCV 91.3 fL (80.0-100.0); Mean Platelet Volume 7.2; Monocytes # (A) 0.4 k/uL (0-1.0); Monocytes % (A) 6 %; Neutrophils # (A) 5.9 k/uL (1.3-7.7); Neutrophils % (A) 80 %; Platelet Count 227 k/uL (150-450); RBC 4.46 m/uL (3.80-5.40); RDW 14.9 % (11.5-15.5); WBC 7.4 k/uL (3.8-10.6)
[2020-01-17 15:46] LABS: Protein/Creatinine Ratio,Urine 0.11
[2020-01-17 16:27] LABS: Appearance,Urine Clear (Clear); Bacteria,Urine Rare /hpf; Bilirubin,Urine Negative (Negative); Blood,Urine Negative (Negative); Color,Urine Yellow; Glucose,Urine (UA) Negative (Negative); Hyaline Casts,Urine 1 /lpf (0-2); Ketones,Urine Negative (Negative); Leukocyte Esterase,Urine Moderate (Negative); Mucus,Urine Rare /hpf; Nitrite,Urine Negative (Negative); Protein,Urine Negative (Negative); RBC,Urine <1 /hpf (0-5); Specific Gravity,Urine 1.012 (1.001-1.035); Squamous Epithelial Cell,Urine 1 /hpf (0-4); Urobilinogen,Urine <2.0 mg/dL (<2.0); WBC,Urine 14 /hpf (0-5)
[2020-01-17 21:36] LABS: % Iron Saturation 26.02 (12.00-45.00); African American GFR (CKD) 65.2 (60.0-200.0); Albumin 4.1 g/dL (3.80-4.90); Anion Gap 9.3 mmol/L (4.00-12.00); Calcium 8.8 mg/dL (8.7-10.3); Carbon Dioxide 22.7 mmol/L (21.6-31.8); Magnesium 1.7 mg/dL (1.5-2.4); Non-African American GFR(CKD) 56.2 (60.0-200.0); Phosphorus 3.8 mg/dL (2.4-5.1); Potassium 4.4 mmol/L (3.5-5.5)
[2020-01-17 21:44] LABS: Ferritin 51.2 ng/mL (10.0-291.0)
== END | disposition home or self-care (01) ==
LOC: LABWHC1 12:41
PROVIDERS: ATTEND Internal Medicine Nephrology
DX: N18.3 Chronic kidney disease, stage 3 (moderate) (principal); D63.1 Anemia in chronic kidney disease; M10.9 Gout, unspecified; N25.81 Secondary hyperparathyroidism of renal origin; E55.9 Vitamin D deficiency, unspecified; N39.0 Urinary tract infection, site not specified; R80.9 Proteinuria, unspecified
CPT/HCPCS: 36415; 80048; 81001; 82040; 82306; 82570; 82728; 83540; 83550; 83735; 83970; 84100; 84156; 84550; 85025; 87086

== ENCOUNTER → 2020-10-04 | Outpatient (CLI) | payer MEDICARE, OTHER ==
[2020-10-04 22:35] LABS: Basophils # (A) 0.02 X 10*3/uL (0.00-0.10); Basophils % (A) 0.4 %; Eosinophils # (A) 0.09 X 10*3/uL (0.04-0.35); Eosinophils % (A) 1.8 %; HCT 39.5 % (37.2-46.3); HGB 12.8 g/dL (12.0-15.0); Lymphocytes # (A) 0.63 X 10*3/uL (0.90-5.00); Lymphocytes % (A) 12.7 %; MCH 29.3 pg (27.0-32.0); MCHC 32.4 g/dL (32.0-37.0); MCV 90.4 fL (80.0-97.0); Monocytes # (A) 0.37 X 10*3/uL (0.20-1.00); Monocytes % (A) 7.5 %; Neutrophils # (A) 3.82 X 10*3/uL (1.80-7.70); Neutrophils % (A) 77.2 %; Platelet Count 234 X 10*3/uL (140-440); RBC 4.37 X 10*6/uL (4.10-5.20); RDW 14.7 % (11.5-14.5); WBC 4.95 X 10*3/uL (4.50-10.00)
[2020-10-05 13:34] LABS: African American GFR (CKD) 47.5 (60.0-200.0); Albumin 3.8 g/dL (3.80-4.90); Anion Gap 13.4 mmol/L (4.00-12.00); BUN/Creat Ratio 16.92 Ratio (12.00-20.00); Calcium 9.2 mg/dL (8.7-10.3); Carbon Dioxide 18.6 mmol/L (21.6-31.8); Globulin 1.9 g/dL (1.6-3.3); Potassium 4.9 mmol/L (3.5-5.5); Total Bilirubin 0.5 mg/dL (0.2-1.2); Total Protein 5.7 g/dL (6.2-8.2)
== END | disposition home or self-care (01) ==
LOC: LABWHC1 10:59
PROVIDERS: ATTEND Internal Medicine Gastroenterology
DX: K50.90 Crohn's disease, unspecified, without complications (principal)
CPT/HCPCS: 36415; 80053; 85025

== ENCOUNTER → 2021-04-15 | Outpatient (CLI) | payer MEDICARE, OTHER ==
[2021-04-15 15:15] LABS: Basophils # (A) 0.02 X 10*3/uL (0.00-0.10); Basophils % (A) 0.3 %; Eosinophils # (A) 0.08 X 10*3/uL (0.04-0.35); Eosinophils % (A) 1.1 %; HCT 40.1 % (37.2-46.3); HGB 12.5 g/dL (12.0-15.0); Lymphocytes # (A) 0.63 X 10*3/uL (0.90-5.00); Lymphocytes % (A) 8.4 %; MCHC 31.2 g/dL (32.0-37.0); Mean Platelet Volume 10.6 fL (9.5-12.2); Monocytes # (A) 0.41 X 10*3/uL (0.20-1.00); Monocytes % (A) 5.4 %; Neutrophils # (A) 6.33 X 10*3/uL (1.80-7.70); Platelet Count 238 X 10*3/uL (140-440); RBC 4.31 X 10*6/uL (4.10-5.20); WBC 7.53 X 10*3/uL (4.50-10.00)
[2021-04-15 19:16] LABS: African American GFR (CKD) 36.7 (60.0-200.0); Albumin/Globulin Ratio 1.82 (1.60-3.17); Anion Gap 15.7 mmol/L (10.00-18.00); BUN/Creat Ratio 20.81 Ratio (12.00-20.00); Blood Urea Nitrogen 33.3 mg/dL (9.0-27.0); Calcium 8.8 mg/dL (8.7-10.3); Carbon Dioxide 20.3 mmol/L (20.0-27.5); Globulin 2.2 g/dL (1.6-3.3); Non-African American GFR(CKD) 31.6 (60.0-200.0); Potassium 4.6 mmol/L (3.5-5.5); Total Bilirubin 0.6 mg/dL (0.30-1.20); Total Protein 6.2 g/dL (6.2-8.2)
== END | disposition home or self-care (01) ==
LOC: LABWHC1 09:55
PROVIDERS: ATTEND Internal Medicine Gastroenterology
DX: K50.90 Crohn's disease, unspecified, without complications (principal)
CPT/HCPCS: 36415; 80053; 85025

== ENCOUNTER 2021-09-17 10:28 | Emergency (ER) | payer MEDICARE, OTHER ==
[2021-09-17 10:37] VITALS: RESP 18; TEMP 97.4
--- NOTE | 2021-09-17 12:30 | XR ---
EXAMINATION TYPE: XR Hip Limited RT DATE OF EXAM: 09/17/2021 COMPARISON: NONE HISTORY: Pain TECHNIQUE: One view submitted FINDINGS: Postsurgical change with diffuse osteopenia. No acute fracture. IMPRESSION: Postoperative change
--- NOTE | 2021-09-17 12:31 | XR ---
EXAM TYPE: LUMBAR SPINE X RAY SERIES COMPARISON: 12/02/2016 HISTORY: Pain TECHNIQUE: 4 views are submitted. FINDINGS: There is a levoconvex curvature of the lumbar spine. L1-L5 posterior fusion hardware is present with interbody fusion from L2 through L5 levels. Lateral osseous fusion is also present. Laminectomies ext end from L2 through L5 levels. There is stable grade 1 anterolisthesis at the fused L4-L5 level. Dege nerative disc disease in the visualized lower thoracic spine. Vertebral body heights are preserved. IMPRESSION: 1. Postoperative change with stable grade 1 anterolisthesis L4 on L5. 2. Diffuse osteopenia. 3. Multilevel hypertrophic and degenerative changes.
--- NOTE | 2021-09-17 12:33 | XR ---
EXAMINATION TYPE: XR sacrum coccyx DATE OF EXAM: 09/17/2021 COMPARISON: NONE HISTORY: Pain Three views are submitted. Sacrum is intact. SI joints are symmetric. Coccyx appears to be intact. Visualized pelvic structures intact. Postsurgical change right hip with diffuse osteopenia. Arthro michelle of the left hip correlate for femoral acetabular impingement. Resolution cranial with grade 1 a nterolisthesis L4 on L5. IMPRESSION: 1. No acute fracture. 2. Postsurgical change lumbar spine. 3. Postsurgical change right hip. 4. 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
--- NOTE | 2021-09-17 13:53 | ED ---
General Adult HPI - General Chief complaint: Fall Stated complaint: trouble walking since fall 6wks ago Time Seen by Provider: 09/17/21 13:02 Source: patient, family Mode of arrival: wheelchair Limitations: no limitations - History of Present Illness Initial comments: This 75-year-old female presents emergency Department with right hip pain after a fall on July 29. Patient states she had a hip replacement in 2017 by and did not experience any complications with her hip up until July 29 when she slipped outside going down a step and landed onto her right hip. Patient states prior to the fall she was participating in physical therapy and still has been going to physical therapy. Patient states she normally walks around with a walker however she was able to walk with her walker at home up until about 2 weeks ago when she had increased pain to her right hip when walking so she has been using a wheelchair at home. Patient is able to stand up and transfer, however it increases her hip pain with walking. Patient states she is currently taking and Williams and muscle relaxer at home. Patient states her pain is localized to her right hip and denies any radiation. During the fall on July 29 patient denies hitting her head or losing consciousness. She states she has not experienced any swelling, erythema or warmth to her hip. She denies having any fevers. She denies any tingling or numbness down her right lower extremity. Patient states she does have neuropathy but that has not changed over the last few years. She denies any chest pain, shortness of breath, abdominal pain, nausea, vomiting, change in bowel or bladder, change in appetite, lightheadedness, dizziness change in vision. Patient denies any saddle anesthesia, bowel or bladder incontinence/retention or any radicular pain. - Related Data Home Medications Medication Instructions Recorded Confirmed Montelukast [Singulair] 10 mg PO HS 04/11/14 09/17/21 Omeprazole [PriLOSEC] 20 mg PO BID 04/11/14 09/17/21 Potassium Chloride [K-Tab ER] 10 meq PO DAILY 06/01/14 09/17/21 azaTHIOprine [Imuran] 150 mg PO HS 06/01/14 09/17/21 Ergocalciferol [Vitamin D2 50,000 unit PO MOWEFRSA 03/18/15 09/17/21 (DRISDOL)] Folic Acid 1 mg PO DAILY 03/18/15 09/17/21 calcitrioL [Rocaltrol] 0.25 mcg PO MOWETHFRSA 03/18/15 09/17/21 Aspirin [Adult Low Dose Aspirin EC] 81 mg PO DAILY 04/03/16 09/17/21 Apixaban [Eliquis] 5 mg PO BID 09/17/21 09/17/21 Carbidopa-Levodopa 25-100 mg 2 tab PO QID 09/17/21 09/17/21 [Sinemet 25-100] Cyanocobalamin [Vitamin B-12 1,000 mcg SQ QMONTHLY 09/17/21 09/17/21 Injection] Cyclobenzaprine [Flexeril] 5 mg PO HS 09/17/21 09/17/21 Gabapentin [Neurontin] 400 mg PO DAILY 09/17/21 09/17/21 Gabapentin [Neurontin] 800 mg PO HS 09/17/21 09/17/21 HYDROcodone/APAP 5-325MG [[place] 1 tab PO Q8H PRN 09/17/21 09/17/21 5-325] Rivastigmine 9.5MG/24Hr Patch 1 patch TRANSDERM Q24HR 09/17/21 09/17/21 [Exelon 9.5MG/24Hr Patch] S-Adenosylmethionine Sul Tosyl 400 mg PO DAILY 09/17/21 09/17/21 [Carl-E] Vit C/E/Zn/Coppr/Lutein/Zeaxan 1 tab PO BID 09/17/21 09/17/21 [Preservision Areds 2 Chew Tab] buPROPion SR [Wellbutrin SR] 150 mg PO DAILY 09/17/21 09/17/21 Previous Rx's Medication Instructions Recorded Nitroglycerin Sl Tabs [Nitrostat] 0.4 mg SUBLINGUAL Q5M PRN #1 bottle 04/13/14 Colesevelam [Welchol] 1,250 mg PO BID tab 04/01/15 ALPRAZolam [Xanax] 0.25 mg PO BID #20 tab 08/21/16 Allergies Allergy/AdvReac Type Severity Reaction Status Date / Time diazepam [From Valium] Allergy Severe cardiac Verified 09/17/21 14:04 arrest meperidine HCl [From Demerol] Allergy Severe cardiac Verified 09/17/21 14:04 arrest morphine Allergy Severe cardiac Verified 09/17/21 14:04 arrest Sulfa (Sulfonamide Allergy Severe LOW Verified 09/17/21 14:04 Antibiotics) PLATELETS AND VOMITING,HIVES dipyridamole Allergy Rash/Hives Verified 09/17/21 14:04 [From Persantine] Latex, Natural Rubber Allergy Swelling Verified 09/17/21 14:04 NSAIDS (Non-Steroidal AdvReac Severe LOW Verified 09/17/21 14:04 Anti-Inflamma PLATELETS buprenorphine HCl AdvReac Nausea & Verified 09/17/21 14:04 [From Buprenex] Vomiting Review of Systems ROS Statement: Those systems with pertinent positive or pertinent negative responses have been documented in the HPI. ROS Other: All systems not noted in ROS Statement are negative. Past Medical History Past Medical History: Asthma, Chest Pain / Angina, Eye Disorder, GERD/Reflux, Hyperlipidemia, Hypertension, Musculoskeletal Disorder, Osteoarthritis (OA), Renal Disease Additional Past Medical History / Comment(s): CROHN'S DISEASE. RENAL INSUFFIENCY, VARICOSE VEINS History of Any Multi-Drug Resistant Organisms: None Reported Past Surgical History: Back Surgery, Bladder Surgery, Cardiac Ablation, Cholecystectomy, Heart Catheterization, Hernia Repair, Hysterectomy, Joint Replacement, Orthopedic Surgery, Tonsillectomy Additional Past Surgical History / Comment(s): LIPOMA REMOVED RT HIP AND BUTTOCK, CATARACTS- LENS IMPLANTS; BILATERAL TOTAL KNEE REPLACEMENT, UMBILICAL HERNIA REPAIR. CYSTOCELE/RECTOCELE REPAIR. RT FOOT, BANDING OF HEMORROIDS, right hip hemiarthroplasty 2016 Past Anesthesia/Blood Transfusion Reactions: No Reported Reaction Past Psychological History: Anxiety Smoking Status: Never smoker Past Alcohol Use History: Occasional Past Drug Use History: None Reported - Past Family History Father Family Medical History: Congestive Heart Failure (CHF), Myocardial Infarction ([place]) Additional Family Medical History / Comment(s): AT AGE 61 [place] Mother Family Medical History: Cancer, Congestive Heart Failure (CHF) Additional Family Medical History / Comment(s): LYMPHOMA AT AGE 91 Brother(s) Family Medical History: Diabetes Mellitus Additional Family Medical History / Comment(s): HEART PROBLEMS Sister(s) Additional Family Medical History / Comment(s): AORTIC ANEURYSM General Exam Limitations: no limitations General appearance: alert, in no apparent distress Head exam: Present: atraumatic, normocephalic, normal inspection Eye exam: Present: normal appearance, PERRL, EOMI. Absent: scleral icterus, conjunctival injection, periorbital swelling Pupils: Present: normal accommodation ENT exam: Present: normal exam, mucous membranes moist Neck exam: Present: normal inspection, full ROM. Absent: tenderness, meningismus, lymphadenopathy Respiratory exam: Present: normal lung sounds bilaterally. Absent: respiratory distress, wheezes, rales, rhonchi, stridor, chest wall tenderness Cardiovascular Exam: Present: regular rate, normal rhythm, normal heart sounds. Absent: systolic murmur, diastolic murmur, rubs, gallop, clicks GI/Abdominal exam: Present: soft, normal bowel sounds. Absent: distended, tenderness, guarding, rebound, rigid Extremities exam: Present: normal inspection, full ROM (Patient has pain when asked to raise her leg up in the air or push or pull against resistance), tenderness (Patient with tenderness over lateral side of left hip. No erythema, warmth, swelling, paleness or coolness present. No sign of infection present. Patient with full sensation present. DP pulses palpable bilaterally.), normal capillary refill, other (Mild swelling around patient recalls that she states has been there for years.). Absent: joint swelling, calf tenderness Back exam: Present: normal inspection, full ROM, paraspinal tenderness (Right paraspinal tenderness to deep palpation. No vertebral tenderness over lumbar spine, sacral spine or coccyx). Absent: CVA tenderness (R), CVA tenderness (L), vertebral tenderness Neurological exam: Present: alert, oriented X3, CN II-XII intact Psychiatric exam: Present: normal affect, normal mood Skin exam: Present: warm, dry, intact, normal color. Absent: rash Course Vital Signs 09/17/21 10:30 Temperature 97.4 F L Pulse Rate 82 Respiratory 18 Rate Blood Pressure 97/67 O2 Sat by Pulse 97 Oximetry Medical Decision Making - Medical Decision Making This 75-year-old female who had a fall on July 29 presents the emergency department with right hip pain. X-ray left hip impression: Postsurgical change with diffuse osteopenia. No acute fracture. Lumbar spine x-ray impression: Postoperative change with stable grade 1 anterior listhesis of L4 on L5. Diffuse osteopenia. Multilevel hypertrophic and degenerative changes. X-ray sacrum impression: No acute fracture. Postsurgical change of lumbar spine. Postsurgical change of right hip. 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 CT right hip without contrast impression: No acute fracture or dislocation. Patient is currently taking [place] 5 mg at home along with Flexeril. I instructed patient to continue taking these as directed. Strict return precautions were discussed. Informed patient to follow-up with who performed her hip surgery in 2017. Informed patient to follow-up with her primary care provider next 1-2 days. Patient verbally agree to plan. Family in room agreed to plan-patient does have and son living with her at home at this time. Patient sent home in stable condition. Case discussed in detail with my attending, . Disposition Clinical Impression: Right hip pain Disposition: HOME SELF-CARE Condition: Stable Instructions (If sedation given, give patient instructions): Fall Prevention for Older Adults (ED), Hip Pain (ED) Additional Instructions: Please follow-up with in the next 1-2 days. Follow-up with your primary care provider in the next 1-2 days. Take your pain medications as directed by her primary care provider. Continue taking sore relaxer as directed. Return to the emergency department with any new, worsening, or concerning symptoms. Is patient prescribed a controlled substance at d/c from ED?: No Referrals: Venu Lawton DO [Primary Care Provider] - 1-2 days Julieth Willis DO [Doctor of Osteopathic Medicine] - 1-2 days Time of Disposition: 14:37
--- NOTE | 2021-09-17 15:02 | CT ---
EXAMINATION TYPE: CT hip RT wo con DATE OF EXAM: 09/17/2021 COMPARISON: CT abdomen and pelvis December 19, 2018. Right hip x-ray 09/17/2021 HISTORY: pain after fall CT DLP: 813.3 mGycm Automated exposure control for dose reduction was used. FINDINGS: Metallic hardware from total right hip arthroplasty causes streak artifact making evaluation slightly suboptimal. No suspicious linear lucency to suggest acute fracture in the visualized portion of the right proximal femur. [place] osseous structures are demineralized. No acute fracture in the visualize d portion of the right pelvis. No hip joint dislocation. Pubic symphysis remains intact. Nonspecific sclerotic focus right superior pelvic ramus coronal image 34 favors benign bone island. No concerning pelvic fluid collection. No suspicious right groin hernia or adenopathy. Right thigh mu scle bulk is maintained. IMPRESSION: No acute fracture or dislocation.
[2021-09-17] MEDS ORDERED: HYDROcodone/APAP 5-325MG 1 EACH TAB PO STA (15:17)
[2021-09-17 15:46] VITALS: BP 141/87; PULSE 81
== END 2021-09-17 16:01 | disposition home or self-care (01) ==
LOC: EC 10:28
DX: M25.551 Pain in right hip (principal); J45.909 Unspecified asthma, uncomplicated; E78.5 Hyperlipidemia, unspecified; I10 Essential (primary) hypertension; Z82.49 Family history of ischemic heart disease and other diseases of the circulatory system; Z88.8 Allergy status to other drugs, medicaments and biological substances; Z88.5 Allergy status to narcotic agent; Z88.0 Allergy status to penicillin; Z88.2 Allergy status to sulfonamides; Z88.6 Allergy status to analgesic agent; Y93.01 Activity, walking, marching and hiking; W10.9XXA Fall (on) (from) unspecified stairs and steps, initial encounter
CPT/HCPCS: 72100; 72220; 73501; 99284

== ENCOUNTER → 2022-01-13 | Outpatient (CLI) | payer MEDICARE, OTHER ==
[2022-01-13 18:42] LABS: HDL Cholesterol 45.2 mg/dL (40.00-60.00)
[2022-01-13 18:54] LABS: Chol/HDL Ratio 4.14 Ratio; LDL Cholesterol,Direct Reflex 69.2 mg/dL (0.00-129.00)
== END | disposition home or self-care (01) ==
LOC: LABWHC1 10:24
PROVIDERS: ATTEND Nuclear Medicine Nuclear Cardiology
DX: E78.5 Hyperlipidemia, unspecified (principal)
CPT/HCPCS: 36415; 80061; 83721

== ENCOUNTER 2022-06-02 06:22 | Day surgery (SDC) | payer MEDICARE, OTHER ==
[2022-05-29 12:07] VITALS: BMI 34.8
[2022-06-02 07:18] VITALS: RESP 16; TEMP 97.5
[2022-06-02] MEDS ORDERED: LACTATED RINGERS 1,000 ML IV ONE (07:26)
[2022-06-02] MEDS ORDERED: LIDOCAINE 2% INJ 20 MG/ML (2 ML VIAL) ONE (07:30)
[2022-06-02] MEDS ORDERED: PROPOFOL 10 MG/ML 20 ML VIAL IV ONE (07:30)
[2022-06-02] MEDS ORDERED: LIDOCAINE 1% (10MG/ML) FOR IV START INTRADERMA PRN (07:49)
[2022-06-02] MEDS ORDERED: LACTATED RINGERS 1,000 ML IV SCH (07:49)
[2022-06-02] MEDS ORDERED: ONDANSETRON 4 MG/2 ML VIAL IVP PRN (07:49)
--- NOTE | 2022-06-02 07:55 | P.PCN ---
Date of Procedure: 06/02/22 Procedure(s) Performed: Brief history: Patient is a pleasant 76-year-old white female scheduled for an elective upper endoscopy as well as colonoscopy as a part of evaluation of GERD and lungs any history of Crohn's disease diagnosed in 2010. She is presently maintained on azathioprine 150 mg daily and is in clinical remission. Procedure performed: Esophagogastroduodenoscopy biopsy Colonoscopy with biopsy Preoperative diagnosis: GERD Long-standing history of Crohn's ileitis Anesthesia: [facility] [place] Procedure: After informed consent was obtained from the patient was brought into the endoscopy unit and IV sedation was administered by anesthesia under continuous monitoring. Initially upper endoscopy was done. The Olympus GF 160 video endoscope was inserted inserted into the mouth and esophagus intubated without any difficulty and was gradually advanced into the stomach and duodenum and carefully examined. The bulb and second part of the duodenum appeared normal. The scope was then withdrawn into the stomach adequately insufflated with air and upon careful examination the antrum appeared normal. There was gastritis noted in the distal body the stomach which was biopsied. Multiple small gastric polyps also noted. The rest of the body, cardia and fundus appeared normal. The scope was then withdrawn into the esophagus. The GE junction was located at 40 cm to the incisors. It appeared regular with no erythema erosions or ulcerations. Rest of the esophagus appeared normal. Patient tolerated the procedure well. At this time the patient continued to remain sedation. Initial digital rectal examination was normal. Olympus CF 160 video colonoscope was then inserted into the rectum and gradually advanced to the cecum without any difficulty. Careful examination was performed as the scope was gradually being withdrawn. The prep was excellent. The cecum, ascending colon, appeared normal. The proximal transverse colon there was a small patch of colitis or mucosal erythema and friability noted and biopsies were done from this area. The rest of the transverse colon, descending colon, sigmoid colon and rectum appeared normal. Scattered sigmoid diverticulosis seen. Retroflexion was performed in the rectum and no lesions were noted. Patient tolerated the procedure well. Impression: 1. Upper endoscopy revealed gastritis involving the body the stomach and small gastric polyps 2. Colonoscopy revealed scattered sigmoid diverticulosis and a small patchy area of colitis noted in the proximal transverse colon which was biopsied. Recommendations: Findings of this examination were discussed with the patient as well as a family. She was advised to follow with the biopsy results. If the biopsies are negative for dysplasia she can have a repeat colonoscopy in 5 years. Continue current medications. Follow up in office in 3 months.
[2022-06-02 08:23] VITALS: BP 134/76; PULSE 73
== END 2022-06-02 09:00 | disposition home or self-care (01) ==
LOC: ORWHC2ENDO 06:22
PROVIDERS: ATTEND Internal Medicine Gastroenterology
DX: K29.50 Unspecified chronic gastritis without bleeding (principal); K57.30 Diverticulosis of large intestine without perforation or abscess without bleeding; K21.9 Gastro-esophageal reflux disease without esophagitis; K50.90 Crohn's disease, unspecified, without complications; I10 Essential (primary) hypertension; E78.5 Hyperlipidemia, unspecified; J45.909 Unspecified asthma, uncomplicated; F41.8 Other specified anxiety disorders; I25.10 Atherosclerotic heart disease of native coronary artery without angina pectoris; I25.2 Old myocardial infarction; M19.90 Unspecified osteoarthritis, unspecified site; Z98.890 Other specified postprocedural states; Z79.899 Other long term (current) drug therapy; Z88.8 Allergy status to other drugs, medicaments and biological substances; Z88.0 Allergy status to penicillin; Z88.2 Allergy status to sulfonamides; Z88.5 Allergy status to narcotic agent; Z91.040 Latex allergy status
CPT/HCPCS: 88305; 45380; 43239; J2704; J2001